=== PATIENT | female | born 1950 | race Caucasian/White ===

== ENCOUNTER → 2020-10-06 12:03 | Outpatient (BNVA) | payer MEDICARE, MEDICAID, SELFPAY | PROVIDERS: PCP Internal Medicine; Visit Provider Nurse Practitioner Gerontology | CPT/HCPCS: Q3014 ==

== ENCOUNTER 2020-10-08 09:42 | Outpatient (REF) | payer MEDICARE, MEDICAID, SELFPAY ==
[2020-10-08 10:58] LABS: Creatinine Urine 115.63 mg/dL; Microalbum/Creatinine Ratio Ur 20.7 ug/mg cr
[2020-10-08 11:02] LABS: Alanine Aminotransferase 8 U/L (0-31); Albumin Level 4.2 g/dL (3.5-5.0); Alkaline Phosphatase 141 U/L (39-117); Anion Gap 13 (12-20); Aspartate Amino Transferase 24 U/L (5-31); Bilirubin Total 0.6 mg/dL (0.0-1.0); Blood Urea Nitrogen 13 mg/dL (9-16); Calcium 9.1 mg/dL (8.4-10.2); Carbon Dioxide 29 mmol/L (22-29); Chloride 100 mmol/L (96-108); Cholesterol 153 mg/dL; Estimated Glomerular Filt Rate 50; Glucose Fasting 296 mg/dL (60-99); HDL Cholesterol 34 mg/dL; LDL Cholesterol Calculated 92 mg/dl; Sodium 138 mmol/L (135-145); Total Protein 7.1 g/dL (6.5-8.0); Triglycerides 135 mg/dL
[2020-10-08 11:10] LABS: Estimated Average Glucose 246 mg/dL; Hemoglobin A1c % 10.2 %
== END 2020-10-08 09:43 | disposition home or self-care (01) ==
LOC: HO.LAB 09:42
PROVIDERS: PCP Internal Medicine; Visit Provider Nurse Practitioner Gerontology
DX: E11.42 Type 2 diabetes mellitus with diabetic polyneuropathy (principal); E78.5 Hyperlipidemia, unspecified
CPT/HCPCS: 36415; 80053; 80061; 82043; 83036

== ENCOUNTER 2020-10-15 09:40 | Outpatient (REF) | payer MEDICARE, MEDICAID, SELFPAY ==
[2020-10-20 18:52] LABS: Alk.Phos Iso. Macrohepatic 0 % (<=0); Alk.Phos Isoenzymes Bone 53 % (28-66); Alk.Phos Isoenzymes Intest 0 % (1-24); Alk.Phos Isoenzymes Liver 47 % (25-69); Alk.Phos Isoenzymes Placental 0 % (<=0); Alk.Phos Isoenzymes Total 123 U/L (37-153)
== END 2020-10-15 09:41 | disposition home or self-care (01) ==
LOC: HO.LAB 09:40
PROVIDERS: PCP Nurse Practitioner Gerontology; Visit Provider Internal Medicine
DX: R74.8 Abnormal levels of other serum enzymes (principal)
CPT/HCPCS: 36415; 84080

== ENCOUNTER 2020-11-08 10:51 | Outpatient (REF) | payer MEDICARE, MEDICAID, SELFPAY ==
--- NOTE | 2020-11-08 11:03 | ECG_ITS ---
Test Reason : Z01.818 Blood Pressure : / mmHG Vent. Rate : 090 BPM Atrial Rate : 090 BPM P-R Int : 168 ms QRS Dur : 070 ms QT Int : 358 ms P-R-T Axes : 053 039 002 degrees QTc Int : 437 ms Normal sinus rhythm Nonspecific T wave abnormality Abnormal ECG When compared with ECG of 03-MAY-2019 15:42, No significant change was found Referred By: Florence Mercedes Electronically Signed By:Troy De La Rosa
[2020-11-08 11:30] LABS: MANUAL DIFF FLAG NO
[2020-11-08 11:37] LABS: Basophils Percent Auto 0.4 % (0-2); Eosinophils Absolute Auto 0.2 X10*3/uL (0.0-0.4); Eosinophils Percent Auto 3.1 % (0-4); Hematocrit 41.7 % (37-47); Hemoglobin 12.9 g/dl (12.0-16.0); Imm Gran Abs Auto 0.01 X10*3/uL (0.00-0.03); Imm Gran Pct Auto 0.1 % (0.0-0.4); Lymphocytes Absolute Auto 2.6 X10*3/uL (1.2-4.9); Mean Corpuscular HGB Conc 30.9 g/dl (31.0-35.0); Mean Corpuscular Hemoglobin 28.3 pg (27.0-33.0); Mean Corpuscular Volume 91.4 fL (80-98); Mean Platelet Volume 9.9 fL (9.4-12.3); Monocytes Absolute Auto 0.6 X10*3/uL (0.1-1.2); Monocytes Percent Auto 7.3 % (2-11); Neutrophils Absolute Auto 4.1 X10*3/uL (2.0-8.3); Neutrophils Percent Auto 54.1 % (45-73); Platelet Count 222 X10*3/uL (160-400); Red Blood Count 4.56 X10*6/uL (4.20-5.50); Red Cell Distribution Width 13.4 % (11.0-16.0); White Blood Count 7.5 X10*3/uL (4.8-10.8)
[2020-11-08 12:11] LABS: Alanine Aminotransferase 10 U/L (0-31); Albumin Level 4.3 g/dL (3.5-5.0); Alkaline Phosphatase 122 U/L (39-117); Anion Gap 14 (12-20); Aspartate Amino Transferase 26 U/L (5-31); Bilirubin Total 0.4 mg/dL (0.0-1.0); Blood Urea Nitrogen 15 mg/dL (9-16); Calcium 9.7 mg/dL (8.4-10.2); Carbon Dioxide 27 mmol/L (22-29); Chloride 105 mmol/L (96-108); Cholesterol 195 mg/dL; Estimated Glomerular Filt Rate 53; Glucose Fasting 140 mg/dL (60-99); HDL Cholesterol 34 mg/dL; LDL Cholesterol Calculated 136 mg/dl; Potassium 4.4 mmol/L (3.3-5.1); Sodium 142 mmol/L (135-145); Total Protein 7.1 g/dL (6.5-8.0); Triglycerides 126 mg/dL
== END 2020-11-08 10:52 | disposition home or self-care (01) ==
LOC: HO.LAB 10:51
PROVIDERS: PCP Internal Medicine; Visit Provider Nurse Practitioner Family
DX: Z01.818 Encounter for other preprocedural examination (principal)
CPT/HCPCS: 36415; 80053; 80061; 85025; 93005

== ENCOUNTER → 2020-12-13 11:23 | Outpatient (BNVA) | payer MEDICARE, MEDICAID, SELFPAY | PROVIDERS: PCP Internal Medicine; Visit Provider Nurse Practitioner Gerontology | DX: E11.42 Type 2 diabetes mellitus with diabetic polyneuropathy (principal); E78.5 Hyperlipidemia, unspecified; I10 Essential (primary) hypertension; Z68.32 Body mass index [BMI] 32.0-32.9, adult; Z79.4 Long term (current) use of insulin; Z71.3 Dietary counseling and surveillance; Z87.891 Personal history of nicotine dependence | CPT/HCPCS: 82947; 99212 ==

== ENCOUNTER 2020-12-22 11:03 | Outpatient (REF) | payer MEDICARE, MEDICAID, SELFPAY ==
--- NOTE | ~2020-12-22 | US_ITS ---
EXAMINATION: US ABDOMEN COMPLETE CLINICAL INFORMATION: Left upper quadrant pain. COMPARISON: Abdominal ultrasound 04/23/2016 TECHNIQUE: Real-time imaging of the abdominal viscera. FINDINGS: PANCREAS: Not well visualized due to bowel gas ABDOMINAL AORTA: The proximal and distal segments are normal in caliber. The midabdominal aorta is not well visualized due to bowel gas INFERIOR VENA CAVA: Visualized portions are normal. LIVER: Liver echotexture is increased. No focal liver lesion is seen. The liver is normal in size and contour. There is mild intrahepatic biliary duct dilatation. GALLBLADDER: The gallbladder is upper normal in size. There is a gallstone in the gallbladder neck.. The gallbladder wall is normal. COMMON BILE DUCT: Upper normal in size measuring 0.79 cm in diameter. RIGHT KIDNEY: Normal. No hydronephrosis. No renal calculi or focal parenchymal lesions. The kidney measures 11.0 cm in maximum dimension. LEFT KIDNEY: Normal. No hydronephrosis. No renal calculi or focal parenchymal lesions. The kidney measures 10.5 cm in maximum dimension. SPLEEN: Normal. The spleen measures 9.2 cm in maximum dimension. FREE FLUID: There is trace ascites. US/US abdomen complete IMPRESSION: Echogenic liver. Mild intrahepatic biliary duct dilatation and upper normal-size common bile duct. Upper normal-size gallbladder with gallstone in the neck. Limited visualization of the pancreas and aorta.
== END 2020-12-22 11:04 | disposition home or self-care (01) ==
LOC: HO.US 11:03
PROVIDERS: Visit Provider Internal Medicine
DX: R10.12 Left upper quadrant pain (principal)
CPT/HCPCS: 76700

== ENCOUNTER 2021-01-22 06:53 | Emergency (ER) | payer MEDICARE, MEDICAID, SELFPAY ==
--- NOTE | ~2021-01-22 | CT_ITS ---
EXAMINATION: CT ABDOMEN AND PELVIS WITHOUT CONTRAST CLINICAL INFORMATION: Left flank pain COMPARISON: Portions of a previous study 07/11/14 TECHNIQUE: Multidetector volumetric imaging was performed from the superior aspect of the liver through the pubic symphysis. Sagittal and coronal reformatted images were obtained on the technologist's workstation. This CT examination was performed using dose optimization techniques as appropriate, variously including the following: *Automated exposure control *Adjustment of mA and/or kV according to patient size (this includes techniques or standardized protocols for targeted exams where dose is matched to indication/reason for exam; i.e. extremities or head) *Use of iterative reconstruction technique DLP: 752 mGy-cm FINDINGS: LUNG BASES: No suspicious abnormality in the visualized lower chest LIVER, GALLBLADDER, AND BILIARY TREE: Fatty change in the liver. No suspicious focal lesion. There is a calcified gallstone near the neck. There is no pericholecystic fluid. The common duct measures close to 1 cm. This is greater than expected but is likely unchanged when compared to 07/11/14. There is no opaque calculus demonstrated in the common duct. PANCREAS: No definite mass. No localized peripancreatic stranding. SPLEEN: Within normal limits ADRENAL GLANDS: Normal KIDNEYS AND URETERS: There is no dilation of the urinary collecting system on either side. There is no opaque urinary calculus. There is no perinephric stranding. BLADDER: No suspicious abnormality GASTROINTESTINAL TRACT: A large amount of fecal residue throughout the colon. No localized colonic wall thickening or localized pericolonic fat stranding. No CT evidence of acute appendicitis. There is no small bowel dilation. There is no suspicious abnormality in the stomach. ABDOMINAL WALL: No significant hernia is appreciated. LYMPH NODES: Normal. VASCULAR: There is no abdominal aortic aneurysm. No evidence of a retroperitoneal hemorrhage. PELVIC VISCERA: Slightly heterogeneous uterus with mild uterine contour abnormalities. The pattern suggests the possibility of fibroids. No significant interval change. OSSEOUS STRUCTURES: No suspicious focal lesion. There are extensive degenerative changes in the spine CT/CT abdomen pelvis wo con IMPRESSION: There is no evidence of urinary tract obstruction or opaque urinary calculus. Large amount of fecal residue throughout the colon. No evidence of bowel obstruction.
[2021-01-22 08:35] VITALS: BP 118/58; PULSE 84; RESP 18; TEMP 36.3; O2SAT 98; BMI 38.2
[2021-01-22 08:49] LABS: Basophils Absolute Auto 0.1 X10*3/uL (0.0-0.2); Basophils Percent Auto 0.7 % (0-2); Eosinophils Absolute Auto 0.1 X10*3/uL (0.0-0.4); Eosinophils Percent Auto 1.4 % (0-4); Hematocrit 42.7 % (37-47); Hemoglobin 13.7 g/dl (12.0-16.0); Imm Gran Abs Auto 0.02 X10*3/uL (0.00-0.03); Imm Gran Pct Auto 0.2 % (0.0-0.4); Lymphocytes Absolute Auto 2.5 X10*3/uL (1.2-4.9); MANUAL DIFF FLAG NO; Mean Corpuscular HGB Conc 32.1 g/dl (31.0-35.0); Mean Corpuscular Hemoglobin 28.9 pg (27.0-33.0); Mean Corpuscular Volume 90.1 fL (80-98); Mean Platelet Volume 9.7 fL (9.4-12.3); Monocytes Absolute Auto 0.4 X10*3/uL (0.1-1.2); Monocytes Percent Auto 4.9 % (2-11); Neutrophils Absolute Auto 5.6 X10*3/uL (2.0-8.3); Neutrophils Percent Auto 63.8 % (45-73); Platelet Count 224 X10*3/uL (160-400); Red Blood Count 4.74 X10*6/uL (4.20-5.50); Red Cell Distribution Width 13.5 % (11.0-16.0); White Blood Count 8.7 X10*3/uL (4.8-10.8)
--- NOTE | 2021-01-22 09:11 | ED.GENADULT ---
HPI - General Adult General Chief complaint: Back Pain/Injury Stated complaint: Flank pain Time Seen by Provider: 01/22/21 09:11 Source: patient Mode of arrival: ambulatory Limitations: no limitations History of Present Illness HPI narrative: 70 y/o female with history of DM2 with polyneuropathy, wheelchair bound, obesity, GERD, insomnia who presents to the ED from home with her son reporting left flank and lower abdominal pain for the last few weeks. It is worse in the mornings and with movement. It starts in her left lower and middle back and radiates anteriorly to her lower abdomen. She denies N/V/D or any urinary symptoms. No fevers but reports chills. She denies any known injury. MD complaint: left flank pain Onset (ago): week(s) Location: back and abdomen Radiation: abdomen Severity: moderate Severity scale (1-10): 5 Quality: aching Pain Consistency: constant Relieving factors: rest Exacerbating factors: movement Associated symptoms: denies other symptoms Treatments prior to arrival: none Related Data Home Medications Medication Instructions Recorded Confirmed alprazolam 0.25 mg tablet 0.25 mg PO BID 09/06/20 12/13/20 blood pressure test kit-large #1 ea 09/06/20 12/13/20 carbidopa 25 mg-levodopa 100 mg 2 tab PO TID 09/06/20 12/13/20 tablet cromolyn 4 % eye drops 1 drp OPHTHALMIC (EYE) QID 09/06/20 12/13/20 cyclobenzaprine 5 mg tablet 5 mg PO BEDTIME PRN 09/06/20 12/13/20 enalapril maleate 2.5 mg tablet 2.5 mg PO DAILY 09/06/20 12/13/20 lactulose 10 gram/15 mL oral 10 g PO DAILY 09/06/20 12/13/20 solution metformin 1,000 mg tablet 1,000 mg PO BID 09/06/20 12/13/20 metoprolol succinate 25 mg 12.5 mg PO BID 09/06/20 12/13/20 tablet,extended release 24 hr mometasone 0.1 % topical cream 1 appl TOPICAL DAILY 09/06/20 12/13/20 ropinirole 0.25 mg tablet 0.75 mg PO TID tab 09/06/20 12/13/20 trazodone 50 mg tablet 50 mg PO DAILY 09/06/20 12/13/20 walker #1 ea 09/06/20 12/13/20 fluocinolone acetonide oil 0.01 % 5 drp OTIC (EARS) BID PRN 10/06/20 12/13/20 ear drops amantadine HCl 100 mg capsule 100 mg PO BID 12/13/20 12/13/20 Previous Rx's Medication Instructions Recorded blood-glucose meter #1 ea 09/06/20 colloidal oatmeal 1 packet TOPICAL DAILY 8 Days #8 ea 09/06/20 clotrimazole-betamethasone 1 1 appl TOPICAL BID 15 Days #45 g 09/28/20 %-0.05 % topical cream hydrocortisone 1 % topical cream 1 appl TOPICAL BID PRN 90 Days 09/28/20 #454 g sertraline 25 mg tablet 25 mg PO DAILY 90 Days #90 tab 09/28/20 blood sugar diagnostic #100 ea 10/11/20 pantoprazole 40 mg tablet,delayed 40 mg PO DAILY #90 tab 11/22/20 release gabapentin 400 mg capsule 400 mg PO TID #270 cap 12/07/20 insulin degludec 200 unit/mL (3 10 unit SUBCUT DAILY #9 ml 12/07/20 mL) subcutaneous pen pen needle, diabetic 32 gauge x #30 ea 12/07/20 lancets 33 gauge #100 ea 12/13/20 rosuvastatin 20 mg tablet 20 mg PO DAILY #30 tab 12/13/20 empagliflozin 10 mg tablet 10 mg PO QAM #30 tab 12/14/20 linagliptin 5 mg tablet 5 mg PO DAILY #30 tab 12/14/20 oxycodone 10 mg tablet 10 mg PO Q8H PRN 30 Days #90 tab 12/27/20 cyclobenzaprine 5 mg PO TID PRN #10 tab 01/22/21 polyethylene glycol 3350 [Miralax] 17 g PO DAILY #119 g 01/22/21 Allergies Allergy/AdvReac Type Severity Reaction Status Date / Time aspirin [Aspirin] Allergy Intermediate NOSE BLEED Verified 12/13/20 11:57 Review of Systems Review of Systems: Constitutional: No Fever, No Chills ENT/Mouth: No sore throat, No Rhinorrhea, No Swallowing Difficulty Cardiovascular: No Chest Pain, No SOB, No Orthopnea, No Edema Respiratory: No Cough, No Sputum, No Wheezing, No dyspnea Gastrointestinal: No Nausea, No Vomiting, No Diarrhea, + abdominal Pain Genitourinary: No Dysuria, No Urinary Frequency, No Hematuria Musculoskeletal: No joint pain, + Myalgias Skin: No Skin Lesions, No rash Neuro: No Weakness, No Numbness, No Dizziness, No Headache Psych: No Anxiety/Panic, No Depression Heme/Lymph: No Bruising, No Lymphadenopathy Endocrine: No Polyuria, No Polydipsia [facility] Past Medical History Medical History Dyslipidemia Essential hypertension GERD (gastroesophageal reflux disease) Insomnia Intertrigo Left upper quadrant abdominal pain Lumbar degenerative disc disease Neuropathy Obesity Parkinsons disease Pre-op examination Rash Restless leg syndrome Type 2 diabetes mellitus with diabetic polyneuropathy Unsteady gait Wheelchair bound Surgical History H/O right breast biopsy History of tubal ligation Hx of colonoscopy Hx of eye surgery Hx of mammogram Family History Family History Father No problems noted. Mother No problems noted. Sister Breast cancer S/P CABG x 1 Brother S/P CABG x 1 Cancer Social History Social History Household Members: Children Advance Directives: No Advance Directives Information Provided: No Physical Exam Vital Signs: Vital Signs: Last Vital Signs Temp 97.4 F 01/22/21 10:00 Pulse 82 01/22/21 10:00 Resp 18 01/22/21 10:00 BP 116/68 01/22/21 10:00 Pulse Ox 98 01/22/21 10:00 Body Mass Index 38.2 Appearance: Alert. Oriented X3. No acute distress. Eyes: Pupils equal, round and reactive to light. ENT: Pharynx normal. Neck: Normal inspection. Neck supple. CVS: Normal heart rate and rhythm. Pulses normal. Respiratory: No respiratory distress. Breath sounds normal. Abdomen: Soft and nontender. +BS x4 Back: left middle and lower back with soft tissue tenderness. Skin: Skin warm and dry. Normal skin color. Normal skin turgor. No rashes. Extremities: No lower extremity edema. Neuro: Oriented X 3. No motor deficit. No sensory deficit. Course Course Course Narrative: 70 y/o female presenting with multiple weeks of left flank and back pain, radiates to her abdomen. Lab workup and urine are unremarkable. Suspect muscular etiology but will get CT scan for further evalution. Reevaluation(s) Reevaluation #1: CT scan showing constipation. Will start bowel regimen as well as low dose muscle relaxer for back pain. She is stable for discharge home with outpatient follow up. Medical Decision Making Lab Data Result diagrams: 01/22/21 08:41 01/22/21 08:41 Labs: Lab Results 01/22/21 01/22/21 01/22/21 Range/Units 08:41 08:41 09:17 WBC 8.7 (4.8-10.8) X10*3/uL RBC 4.74 (4.20-5.50) X10*6/uL Hgb 13.7 (12.0-16.0) g/dl Hct 42.7 (37-47) % MCV 90.1 (80-98) fL MCH 28.9 (27.0-33.0) pg MCHC 32.1 (31.0-35.0) g/dl RDW 13.5 (11.0-16.0) % Plt Count 224 (160-400) X10*3/uL MPV 9.7 (9.4-12.3) fL Immature Gran % (Auto) 0.2 (0.0-0.4) % Neut % (Auto) 63.8 (45-73) % Lymph % (Auto) 29.0 (20-40) % [place] % (Auto) 4.9 (2-11) % Eos % (Auto) 1.4 (0-4) % Baso % (Auto) 0.7 (0-2) % Lymph # (Auto) 2.5 (1.2-4.9) X10*3/uL [place] # (Auto) 0.4 (0.1-1.2) X10*3/uL Eos # (Auto) 0.1 (0.0-0.4) X10*3/uL Baso # (Auto) 0.1 (0.0-0.2) X10*3/uL Abs Immat Gran (auto) 0.02 (0.00-0.03) X10*3/uL Absolute Neuts (auto) 5.6 (2.0-8.3) X10*3/uL Absolute Nucleated RBC 0.000 (0.0-0.012) X10*3/uL Nucleated RBC % (auto) 0.0 (0.0-0.2) /100WBC Sodium 140 (135-145) mmol/L Potassium 4.1 (3.3-5.1) mmol/L Chloride 103 (96-108) mmol/L Carbon Dioxide 29 (22-29) mmol/L Anion Gap 12 (12-20) BUN 11 (9-16) mg/dL Creatinine 1.04 (0.5-1.4) mg/dL Estim Creat Clear Calc 57.7 Estimated GFR 53 POC Glucose (60-115) mg/dL Random Glucose 146 H (60-115) mg/dL Calcium 10.0 (8.4-10.2) mg/dL Urine Color YELLOW Urine Appearance HAZY Urine pH 5.5 (5.0-8.0) Ur Specific [place] 1.015 (1.005-1.025) Urine Protein NEG (NEG-TRACE) MG/DL Urine Glucose (UA) 500 H (NEG) MG/DL Urine Ketones 5 (NEG) MG/DL Urine Blood NEG (NEG) Urine Nitrite NEG (NEG) Ur Leukocyte Esterase NEG (NEG) 01/22/21 Range/Units 10:29 WBC (4.8-10.8) X10*3/uL RBC (4.20-5.50) X10*6/uL Hgb (12.0-16.0) g/dl Hct (37-47) % MCV (80-98) fL MCH (27.0-33.0) pg MCHC (31.0-35.0) g/dl RDW (11.0-16.0) % Plt Count (160-400) X10*3/uL MPV (9.4-12.3) fL Immature Gran % (Auto) (0.0-0.4) % Neut % (Auto) (45-73) % Lymph % (Auto) (20-40) % [place] % (Auto) (2-11) % Eos % (Auto) (0-4) % Baso % (Auto) (0-2) % Lymph # (Auto) (1.2-4.9) X10*3/uL [place] # (Auto) (0.1-1.2) X10*3/uL Eos # (Auto) (0.0-0.4) X10*3/uL Baso # (Auto) (0.0-0.2) X10*3/uL Abs Immat Gran (auto) (0.00-0.03) X10*3/uL Absolute Neuts (auto) (2.0-8.3) X10*3/uL Absolute Nucleated RBC (0.0-0.012) X10*3/uL Nucleated RBC % (auto) (0.0-0.2) /100WBC Sodium (135-145) mmol/L Potassium (3.3-5.1) mmol/L Chloride (96-108) mmol/L Carbon Dioxide (22-29) mmol/L Anion Gap (12-20) BUN (9-16) mg/dL Creatinine (0.5-1.4) mg/dL Estim Creat Clear Calc Estimated GFR POC Glucose 142 H (60-115) mg/dL Random Glucose (60-115) mg/dL Calcium (8.4-10.2) mg/dL Urine Color Urine Appearance Urine pH (5.0-8.0) Ur Specific [place] (1.005-1.025) Urine Protein (NEG-TRACE) MG/DL Urine Glucose (UA) (NEG) MG/DL Urine Ketones (NEG) MG/DL Urine Blood (NEG) Urine Nitrite (NEG) Ur Leukocyte Esterase (NEG) Critical Care Time Critical Care Time Critical Care Time: No Discharge Plan Discharge Clinical Impression: Thoracic back pain Qualifiers: Chronicity: unspecified Back pain laterality: left Qualified Code(s): M54.6 - Pain in thoracic spine Constipation Qualifiers: Constipation type: unspecified constipation type Qualified Code(s): K59.00 - Constipation, unspecified Patient Disposition: Home, Self-Care Instructions: Constipation (ED), Back Pain (ED) Additional Instructions: Your lab workup was unremarkable. Your CT scan showed you are constipated. Increase you water and fiber intake. Take Miralax as prescribed once per day. You can also try over the counter Colace and Senna to help you move your bowels. Your back pain is most likely muscular in nature. Take the prescribed muscle relaxer as needed. Recommend Tylenol and/or Motrin as needed for pain. Follow up with your doctor next week. If you have any worsening symptoms come back to the ER for further evaluation. Wharton an?lisis de laboratorio no tuvo nada especial. [place]arton tomograf?a computarizada mostr? que est? estre?morena. [place]ument[place] tu ingesta de agua y fibra. [place] Miralax seg?n lo prescrito nanci vez al d?a. Tambi?n puede probar Colace y Senna de venta jameson para ayudarlo a evacuar. Es muy probable que wharton dolor de espalda sea de naturaleza muscular. [place] el relajante muscular recetado seg?n sea necesario. Recomiende Tylenol y / o Motrin seg?n sea necesario para el dolor. Caron un seguimiento con wharton m?dico la pr?xima semana. Si tiene alg?n s?ntoma que empeora, regrese a la amaris de emergencias para nanci evaluaci?n adicional. Prescriptions: New cyclobenzaprine 5 mg tablet 5 mg PO TID PRN (Reason: muscle spasm) Qty: 10 RF: 0 polyethylene glycol 3350 [Miralax] 17 gram/dose powder 17 g PO DAILY Qty: 119 RF: 0 No Action (DME) blood-glucose meter [FreeStyle Lite Meter] Kit See Rx Instructions .ROUTE .MEDSUPPLY Qty: 1 RF: 0 sertraline 25 mg tablet 25 mg PO DAILY 90 Days Qty: 90 RF: 1 (DME) FreeStyle Lite Strips Strip See Rx Instructions .ROUTE .MEDSUPPLY Qty: 100 RF: 11 pantoprazole 40 mg tablet,delayed release (DR/EC) 40 mg PO DAILY Qty: 90 RF: 2 gabapentin 400 mg capsule 400 mg PO TID Qty: 270 RF: 3 Tresiba FlexTouch U-200 200 unit/mL (3 mL) insulin pen 10 unit subcut DAILY Qty: 9 RF: 1 (DME) pen needle, diabetic [BD Ultra-Fine Lawanda Pen Needle] 32 gauge x 5/32 needle See Rx Instructions .ROUTE .MEDSUPPLY Qty: 30 RF: 11 oxycodone 10 mg tablet 10 mg PO Q8H PRN (Reason: pain) 30 Days Qty: 90 RF: 0 (DME) blood pressure test kit-large Kit See Rx Instructions .ROUTE .MEDSUPPLY Qty: 1 RF: 0 (DME) walker Misc See Rx Instructions .ROUTE .MEDSUPPLY Qty: 1 RF: 0 mometasone 0.1 % cream 1 appl topical DAILY RF: 0 lactulose 10 gram/15 mL solution 10 g PO DAILY RF: 0 alprazolam [Xanax] 0.25 mg tablet 0.25 mg PO BID RF: 0 Aveeno Soothing Bath Packet 1 packet topical DAILY 8 Days Qty: 8 RF: 0 ropinirole 0.25 mg tablet 0.75 mg PO TID RF: 0 cyclobenzaprine 5 mg tablet 5 mg PO BEDTIME PRNRF: 0 metformin 1,000 mg tablet 1,000 mg PO BID RF: 0 metoprolol succinate 25 mg tablet extended release 24 hr 12.5 mg PO BID RF: 0 cromolyn 4 % drops 1 drp ophthalmic (eye) QID RF: 0 enalapril maleate 2.5 mg tablet 2.5 mg PO DAILY RF: 0 carbidopa-levodopa [Sinemet] 25-100 mg tablet 2 tab PO TID RF: 0 trazodone 50 mg tablet 50 mg PO DAILY RF: 0 fluocinolone acetonide oil [DermOtic Oil] 0.01 % drops 5 drp otic (ears) BID PRNRF: 0 hydrocortisone [Anti-Itch (HC)] 1 % cream 1 appl topical BID PRN (Reason: skin irritation Face) 90 Days Qty: 454 RF: 1 clotrimazole-betamethasone 1-0.05 % cream 1 appl topical BID 15 Days Qty: 45 RF: 0 amantadine HCl 100 mg capsule 100 mg PO BID RF: 0 rosuvastatin 20 mg tablet 20 mg PO DAILY Qty: 30 RF: 3 (DME) lancets [TRUEplus Lancets] 33 gauge misc See Rx Instructions .ROUTE .MEDSUPPLY Qty: 100 RF: 11 Tradjenta 5 mg tablet 5 mg PO DAILY Qty: 30 RF: 3 Jardiance 10 mg tablet 10 mg PO QAM Qty: 30 RF: 3 Interventions: ED Discharge Assessment Last Done: 01/22/21 12:28 Discharge Date/Time: 01/22/21 13:10
[2021-01-22 09:24] LABS: Appearance Urine HAZY; Color Urine YELLOW; Glucose Urine UA 500 MG/DL (NEG); Leukocyte Esterase Urine NEG (NEG); Nitrite Urine NEG (NEG); PH 5.5 (5.0-8.0); Specific Gravity - Urine 1.015 (1.005-1.025); Urine Blood NEG (NEG); Urine Ketones 5 MG/DL (NEG); Urine Protein NEG (NEG-TRACE)
[2021-01-22 09:26] LABS: Anion Gap 12 (12-20); Blood Urea Nitrogen 11 mg/dL (9-16); Carbon Dioxide 29 mmol/L (22-29); Chloride 103 mmol/L (96-108); Creatinine Clr Calc Pharmacy 57.7; Estimated Glomerular Filt Rate 53; Glucose Random 146 mg/dL (60-115); Potassium 4.1 mmol/L (3.3-5.1); Sodium 140 mmol/L (135-145)
[2021-01-22 10:00] VITALS: BP 116/68; PULSE 82; RESP 18; TEMP 36.3; O2SAT 98
[2021-01-22] MEDS: Ketorolac Tromethamine 30 MG/ML VIAL IM (10:03)
--- NOTE | 2021-01-22 10:29 | PC.NURSE ---
CT RESULT PENDING PROVIDER AWARE PT TAKES INSULIN, POC 142 GIVEN SNACK, PLAN FOR DC PT CAN RESUME INSULIN AT HOME
[2021-01-22 10:33] LABS: Glucose, Whole Blood 142 mg/dL (60-115)
== END 2021-01-22 13:10 | disposition home or self-care (01) ==
PROVIDERS: Emergency Provider Emergency Medicine Emergency Medical Services; PCP Internal Medicine
DX: M54.6 Pain in thoracic spine (principal); K59.00 Constipation, unspecified; E11.42 Type 2 diabetes mellitus with diabetic polyneuropathy; I10 Essential (primary) hypertension; G20 Parkinson's disease; Z79.4 Long term (current) use of insulin; Z79.899 Other long term (current) drug therapy; Z99.3 Dependence on wheelchair
CPT/HCPCS: 36415; 74176; 80048; 81003; 82947; 85025; 96372; 99284; J1885

== ENCOUNTER → 2021-03-15 12:11 | Outpatient (BNVA) | payer MEDICARE, MEDICAID, SELFPAY | PROVIDERS: PCP Internal Medicine; Visit Provider Nurse Practitioner Gerontology | DX: E11.42 Type 2 diabetes mellitus with diabetic polyneuropathy (principal); I10 Essential (primary) hypertension; E78.5 Hyperlipidemia, unspecified | CPT/HCPCS: 82947; 99212 ==

== ENCOUNTER 2021-05-24 12:46 | Outpatient (REF) | payer MEDICARE, MEDICAID, SELFPAY ==
--- NOTE | ~2021-05-24 | MM_ITS ---
EXAMINATION: BONE DENSITOMETRY CLINICAL INDICATION: Asymptomatic menopausal state. COMPARISON: This is the patient's baseline examination. TECHNIQUE: Using a Digital Lumens DXA System (software version: 13.1) manufactured by [employer], dual-energy x-ray absorptiometry was performed of the lumbar spine and left hip. The images are of good technical quality. Summary results are attached. FINDINGS: AP SPINE L1-L2 (excluding L3 and L4): The data of L1-L4 has been changed to exclude the L3 and L4 vertebral bodies, because degenerative sclerosis at these levels may cause overestimation of lumbar spine density. BMD 1.452 g/cm2, Z-score 3.5, T-score 2.4, normal. LEFT FEMUR, NECK: BMD 0.953 g/cm2, Z-score 0.7, T-score -0.6, normal. LEFT FEMUR, TOTAL: BMD 1.050 g/cm2, Z-score 1.4, T-score 0.3, normal. IDENTIFIED RISK FACTORS: Rheumatoid arthritis. Early menopause, secondary osteoporosis, hysterectomy. HISTORY OF FRACTURE: None listed. MEDICATIONS: None listed. MM/XR DEXA axial skeleton IMPRESSION: 1. DIAGNOSIS: Normal bone density based on the lowest T-score value of -0.6 in the femoral neck applying World Health Organization criteria. 2. 10-YEAR FRACTURE RISK PREDICTION, FRAX: Major osteoporotic fracture (clinical spine, forearm, hip or shoulder) 5.5%. Hip fracture 0.4%. 3. Treatment Recommendations: NOF guidelines recommend consideration for treatment in postmenopausal women and men age 50 and older presenting with the following: -A hip or vertebral (clinical or morphometric) fracture. -T-score less than or equal to -2.5 at the femoral neck or spine after appropriate evaluation to exclude secondary causes. -Low bone mass at the hip or spine and a 10-year fracture probability by FRAX of greater than or equal to 3% for hip fracture or greater than or equal to 20% for major osteoporotic fracture based on the [place] adapted WHO algorithm. 4. Other Recommendations: All treatment decisions require clinical judgment and consideration of individual patient factors, including patient preferences, comorbidities, previous drug use, risk factors not captured in the FRAX model (e.g. frailty, falls, vitamin D deficiency, increased bone turnover, interval significant decline in bone density) and possible under or overestimation of fracture risk by FRAX. FUTURE SCAN RECOMMENDATION: People with diagnosed cases of osteoporosis or at high risk for fracture should have regular bone mineral density tests. For patients eligible for Medicare, routine testing is allowed once every 2 years. The testing frequency can be increased to one year for patients who have rapidly progressing disease, those who are receiving or discontinuing medical therapy to restore bone mass, or have additional risk factors.
--- NOTE | ~2021-05-24 | MM_ITS ---
EXAMINATION: MM SCREENING DIGITAL BREAST TOMOSYNTHESIS, BILATERAL CLINICAL INFORMATION: Screening. Asymptomatic. The lifetime risk of breast cancer based on the Tyrer-Cuzick Model is 3%. COMPARISON: Mammography: 12/18/2016 08/16/2015 TECHNIQUE: Digital breast tomosynthesis is performed in both the craniocaudal and mediolateral oblique views along with computer-aided detection (CAD). Synthesized 2D images are generated from the tomosynthesis. Additional left CC and right MLO views are provided. FINDINGS: There are scattered areas of fibroglandular density (ACR BI-RADS breast composition Category b). There are no significant masses, abnormal calcifications, or other abnormalities. There is biopsy clip marker mid upper outer right breast. Parenchymal pattern is similar to prior studies. MM/MM tomosynthesis screening BI IMPRESSION: No mammographic evidence of malignancy. ASSESSMENT: BI-RADS 1: Negative RECOMMENDATION: Routine annual mammography screening. This patient's information was entered into a reminder system with a target due date for their next mammogram.
== END 2021-05-24 12:47 | disposition home or self-care (01) ==
LOC: HO.MAMMO 12:46
PROVIDERS: PCP Internal Medicine; Visit Provider Nurse Practitioner Family
DX: Z12.31 Encounter for screening mammogram for malignant neoplasm of breast (principal); Z13.820 Encounter for screening for osteoporosis; M06.9 Rheumatoid arthritis, unspecified; Z78.0 Asymptomatic menopausal state
CPT/HCPCS: 77063; 77067; 77080

== ENCOUNTER → 2021-11-09 13:25 | Outpatient (BNVA) | payer MEDICARE, MEDICAID, SELFPAY | PROVIDERS: PCP Internal Medicine; Visit Provider Nurse Practitioner Gerontology | DX: E11.42 Type 2 diabetes mellitus with diabetic polyneuropathy (principal); I10 Essential (primary) hypertension; E78.5 Hyperlipidemia, unspecified | CPT/HCPCS: 82947; 83036; 99212 ==

== ENCOUNTER 2021-11-11 08:58 | Outpatient (REF) | payer MEDICARE, MEDICAID, SELFPAY ==
[2021-11-11 10:29] LABS: Alanine Aminotransferase 17 U/L (0-31); Albumin Level 4.4 g/dL (3.5-5.0); Alkaline Phosphatase 102 U/L (39-117); Anion Gap 12 (12-20); Aspartate Amino Transferase 19 U/L (5-31); Bilirubin Total 0.4 mg/dL (0.0-1.0); Blood Urea Nitrogen 14 mg/dL (9-16); Calcium 10.3 mg/dL (8.4-10.2); Carbon Dioxide 31 mmol/L (22-29); Chloride 105 mmol/L (96-108); Cholesterol 146 mg/dL; Estimated Glomerular Filt Rate 47; Glucose Fasting 118 mg/dL (60-99); HDL Cholesterol 38 mg/dL; LDL Cholesterol Calculated 86 mg/dl; Potassium 4.2 mmol/L (3.3-5.1); Sodium 144 mmol/L (135-145); Total Protein 7.7 g/dL (6.5-8.0); Triglycerides 114 mg/dL
[2021-11-11 11:51] LABS: Creatinine Urine 92.41 mg/dL
[2021-11-12 06:37] LABS: LDL Cholesterol Direct 82 mg/dL (<100)
[2021-11-15 13:27] LABS: Vitamin D 25-OH, D2 <4 ng/mL; Vitamin D 25-OH, D3 15 ng/mL; Vitamin D 25-OH, Total 15 ng/mL (30-100)
== END 2021-11-11 08:59 | disposition home or self-care (01) ==
LOC: HO.LAB 08:58
PROVIDERS: PCP Internal Medicine; Visit Provider Nurse Practitioner Gerontology
DX: E11.42 Type 2 diabetes mellitus with diabetic polyneuropathy (principal); E55.9 Vitamin D deficiency, unspecified
CPT/HCPCS: 36415; 80053; 80061; 82043; 82306; 83721

== ENCOUNTER → 2022-01-29 13:04 | Outpatient (BNVA) | payer MEDICARE, MEDICAID, SELFPAY | PROVIDERS: PCP Internal Medicine; Visit Provider Nurse Practitioner Gerontology | DX: E11.42 Type 2 diabetes mellitus with diabetic polyneuropathy (principal); I10 Essential (primary) hypertension; E78.5 Hyperlipidemia, unspecified; E55.9 Vitamin D deficiency, unspecified; Z79.84 Long term (current) use of oral hypoglycemic drugs; Z79.899 Other long term (current) drug therapy | CPT/HCPCS: 82947; 83036; 99212 ==

== ENCOUNTER 2022-06-27 12:46 | Outpatient (REF) | payer MEDICARE, MEDICAID, SELFPAY ==
--- NOTE | ~2022-06-27 | MM_ITS ---
EXAMINATION: MM SCREENING DIGITAL BREAST TOMOSYNTHESIS, BILATERAL CLINICAL INFORMATION: Screening. Asymptomatic. The lifetime risk of breast cancer based on the Tyrer-Cuzick Model is 6%. COMPARISON: Mammography: 05/24/2021, 12/18/2016, 08/16/2015 TECHNIQUE: Digital breast tomosynthesis is performed in both the craniocaudal and mediolateral oblique views along with computer-aided detection (CAD). Synthesized 2D images are generated from the tomosynthesis. Additional left cleavage view is provided. Technically challenging exam, tailored to patient capabilities. FINDINGS: There are scattered areas of fibroglandular density (ACR BI-RADS breast composition Category b). Breast tissue composition borders on predominantly fatty. Background stromal and fibroglandular densities are stable. There is no interval mass or architectural abnormality or developing density. There are scattered benign round and rim calcifications. There is a biopsy clip marker again noted posterior upper outer right breast. MM/MM tomosynthesis screening BI IMPRESSION: No significant changes from prior exams. ASSESSMENT: BI-RADS 2: Benign RECOMMENDATION: Routine annual mammography screening. This patient's information was entered into a reminder system with a target due date for their next mammogram.
== END 2022-06-27 12:47 | disposition home or self-care (01) ==
LOC: HO.MAMMO 12:46
PROVIDERS: PCP Internal Medicine; Visit Provider Nurse Practitioner Family
DX: Z12.31 Encounter for screening mammogram for malignant neoplasm of breast (principal)
CPT/HCPCS: 77063; 77067

== ENCOUNTER 2022-07-26 10:18 | Outpatient (REF) | payer MEDICARE, MEDICAID, SELFPAY | END 2022-07-26 10:19 | disposition home or self-care (01) | LOC: HO.HOSX 10:18 | PROVIDERS: Visit Provider Physician Assistant | DX: Z13.89 Encounter for screening for other disorder (principal) ==

== ENCOUNTER 2022-07-28 08:58 | Outpatient (REF) | payer MEDICARE, MEDICAID, SELFPAY ==
--- NOTE | ~2022-07-28 | XR_ITS ---
EXAMINATION: XR SHOULDER, RIGHT CLINICAL INFORMATION: Pain COMPARISON: None TECHNIQUE: Three views of the right shoulder. FINDINGS: No fracture or dislocation. The glenohumeral joint is well aligned. Narrowing of the joint space with osteophyte formation. Mild hypertrophic degenerative change of the acromioclavicular joint with subacromial spurring noted. The visualized lung is clear. The visualized ribs are intact. XR/XR shoulder RT min 2V IMPRESSION: Mild to moderate degenerative changes of the right shoulder.
[2022-07-28 10:18] LABS: Alanine Aminotransferase < 6 U/L (0-31); Albumin Level 4.3 g/dL (3.5-5.0); Alkaline Phosphatase 112 U/L (39-117); Anion Gap 14 (12-20); Aspartate Amino Transferase 16 U/L (5-31); Bilirubin Total 0.5 mg/dL (0.0-1.0); Blood Urea Nitrogen 12 mg/dL (9-16); Calcium 10.4 mg/dL (8.4-10.2); Carbon Dioxide 27 mmol/L (22-29); Chloride 104 mmol/L (96-108); Cholesterol 134 mg/dL; Estimated Glomerular Filt Rate 44; Glucose Fasting 151 mg/dL (60-99); HDL Cholesterol 39 mg/dL; LDL Cholesterol Calculated 77 mg/dl; Potassium 4.7 mmol/L (3.3-5.1); Sodium 140 mmol/L (135-145); Total Protein 7.3 g/dL (6.5-8.0); Triglycerides 94 mg/dL
[2022-07-28 11:29] LABS: Microalbum/Creatinine Ratio Ur 8.3 ug/mg cr
== END 2022-07-28 08:59 | disposition home or self-care (01) ==
LOC: HO.LAB 08:58
PROVIDERS: PCP Internal Medicine; Referring Provider Physician Assistant; Visit Provider Internal Medicine
DX: E78.5 Hyperlipidemia, unspecified (principal); E55.9 Vitamin D deficiency, unspecified; E11.42 Type 2 diabetes mellitus with diabetic polyneuropathy; M25.511 Pain in right shoulder
CPT/HCPCS: 36415; 73030; 80053; 80061; 82043; 82306

== ENCOUNTER 2023-03-23 08:17 | Outpatient (REF) | payer MEDICARE, MEDICAID, SELFPAY ==
[2023-03-23 09:28] LABS: Alanine Aminotransferase 8 U/L (0-31); Albumin Level 4.5 g/dL (3.5-5.0); Alkaline Phosphatase 115 U/L (39-117); Anion Gap 14 (12-20); Aspartate Amino Transferase 22 U/L (5-31); Bilirubin Total 0.6 mg/dL (0.0-1.0); Blood Urea Nitrogen 14 mg/dL (9-16); Calcium 10.6 mg/dL (8.4-10.2); Carbon Dioxide 24 mmol/L (22-29); Chloride 107 mmol/L (96-108); Cholesterol 225 mg/dL; Estimated Glomerular Filt Rate 45; Glucose Fasting 140 mg/dL (60-99); HDL Cholesterol 37 mg/dL; LDL Cholesterol Calculated 168 mg/dl; Potassium 3.6 mmol/L (3.3-5.1); Sodium 141 mmol/L (135-145); Total Protein 7.9 g/dL (6.5-8.0); Triglycerides 103 mg/dL
[2023-03-23 09:38] LABS: Vitamin D 25-OH Total 56.7 ng/mL (>30)
[2023-03-23 10:03] LABS: Creatinine Urine 102.83 mg/dL; Microalbum/Creatinine Ratio Ur 5.8 ug/mg cr
== END 2023-03-23 08:18 | disposition home or self-care (01) ==
LOC: HO.LAB 08:17
PROVIDERS: PCP Internal Medicine; Visit Provider Internal Medicine
DX: E11.9 Type 2 diabetes mellitus without complications (principal); E55.9 Vitamin D deficiency, unspecified; E78.5 Hyperlipidemia, unspecified
CPT/HCPCS: 36415; 80053; 80061; 82043; 82306

== ENCOUNTER 2023-04-02 14:03 | Outpatient (AMB) | payer MEDICARE, MEDICAID, SELFPAY ==
--- NOTE | 2023-04-02 14:04 | A.OFFPC_ITS ---
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 Accompanied by: Niece Allergies aspirin [Aspirin] Allergy (Intermediate, Verified 04/02/23 14:17) NOSE BLEED Medication List - Last Reconciled 04/02/23 by Amanda Rodriguez MD [adult diapers pull-ups As directed] amantadine HCl 100 mg PO BID 90 days blood pressure test kit-large As directed blood sugar diagnostic (FreeStyle Lite Strips) USE DIRECTED ONCE A DAY blood-glucose meter (FreeStyle Lite Meter kit) As directed once a day carbidopa-levodopa 25-100 mg (Sinemet) 2 tabs PO TID cholecalciferol (vitamin D3) 50 mcg PO DAILY 90 days cromolyn 4% 1 drp ophthalmic (eye) QID 7 days empagliflozin (Jardiance) 10 mg PO QAM gabapentin 400 mg PO TID 30 days lancets (TRUEplus Lancets) Three times a day linagliptin (Tradjenta) 5 mg PO DAILY metformin 500 mg PO BID 90 days metoprolol succinate ER 12.5 mg (1/2 x 25 mg) PO BID 90 days oxycodone 10 mg PO Q8H PRN 30 days pantoprazole 40 mg PO DAILY 90 days pen needle, diabetic (BD Ultra-Fine Lawanda Pen Needle) As directed once daily ropinirole 0.75 mg PO TID rosuvastatin 20 mg PO DAILY sertraline 25 mg PO DAILY 90 days trazodone 50 mg PO DAILY triamcinolone acetonide 0.1% 1 appl topical BID 30 days underpads (Certainty Underpads) As directed walker As directed [wipes As directed] Tobacco use date assessed: 11/28/22 Fall risk assessment: No Falls in past year Last assessed Fall Risk: 04/02/23 Dental Screening Dental Screen Date: 04/02/23 Did you have a dental visit in the last 12 months?: No Did you have a dental problem in the last 6 months where you did not have access to dental care?: No Was dental information given to patient?: Patient declined HPI HPI Comments History of Present Illness Details This is a 73-year-old female with diabetes mellitus type 2, hyperlipidemia, mild recurrent major depression and Parkinson's disease that comes accompanied by niece for follow-up on her conditions. A1c close to goal but still not on goal and I will increase Jardiance. She admits not been compliant to diet. LDL not on goal and I will increase rosuvastatin from 20 mg to 40 mg. Depression stable. Parkinson's has not significantly changed and is follow by Neurology. Diabetic eye exam is coming soon. Already went to podiatry. Has abnormal gait and this is why she use a wheelchair for office visit appointment. No chest pain or shortness of breath. [facility] Medical History (Updated 04/02/23 @ 14:36 by Amanda Rodriguez MD) Dyslipidemia Essential hypertension Fecal incontinence GERD (gastroesophageal reflux disease) Insomnia Intertrigo Left upper quadrant abdominal pain Lumbar degenerative disc disease Mild recurrent major depression Neuropathy Obesity Parkinsons disease Post-menopausal Pre-op examination Rash Restless leg syndrome Screening for breast cancer Type 2 diabetes mellitus with diabetic polyneuropathy Unsteady gait Urge urinary incontinence Wheelchair bound Surgical History H/O right breast biopsy History of tubal ligation Hx of colonoscopy Hx of eye surgery Hx of mammogram Family History Father No problems noted. Mother No problems noted. Sister Breast cancer S/P CABG x 1 Brother S/P CABG x 1 Cancer Social History Household Members: Children Housing: Apartment Alcohol intake: former Patient Tobacco Use Status: Former Tobacco user Tobacco use type: Cigarette e-Cigarette/Vaping Use: Never Used Second Hand Smoke Exposure: No service: No Current occupational status: disabled Cognitive needs: Yes Hearing needs: No Vision needs: No Questionnaire Thrive Questionnaire Date Thrive assessed: 11/28/22 TODD-7 AMB Questionnaire TODD-7 Date TODD - 7 assessed: 11/28/22 Source: Developed by Drs. Elliot Castanon, Lizz De Leon, Aldo Gonzalez and colleagues, with an educational adarsh from [employer]. Review of Systems Const All systems reviewed & are unremarkable except as noted in HPI and below Eyes Reports no additional complaints, Denies change in vision and Denies other visual disturbances Card Denies chest pain at rest, Denies chest pain with activity, Denies edema, Denies irregular heart rhythm, Denies claudication, Denies dyspnea, Denies dyspnea on exertion, Denies orthopnea, Denies paroxysmal nocturnal dyspnea and Denies slow heart rate Resp Denies cough, Denies dyspnea and Denies dyspnea on exertion GI Denies abdominal pain, Denies change in bowel habits, Denies excessive flatus, Denies nausea and Denies vomiting Denies urinary incontinence, Denies urinary hesitancy and Denies urinary urgency Musc Denies abnormal gait, Denies atrophy, Denies deformity and Denies limited range of motion Skin/Breast Denies bleeding lesions, Denies changing lesions and Denies rash Neuro Denies abnormal gait and Denies lack of coordination Physical exam (Primary Care) Vital Signs: Last Vital Signs BP 112/76 04/02/23 14:05 BMI result Body Mass Index 31.1 Tobacco/Smoking Status: Tobacco use Status Tobacco use date assessed 11/28/22 04/02/23 14:08 Patient Tobacco Use Status Former Tobacco user 04/02/23 14:08 Tobacco use type Cigarette 04/02/23 14:08 e-Cigarette/Vaping Use Never Used 04/02/23 14:08 Thrive Assessment: Date of Thrive Assessment Date Thrive assessed 11/28/22 04/02/23 14:08 Const Orientation/consciousness: oriented to person Limitations: wheelchair Eyes General: appearance normal, both eyes and all related structures Eyelids: Yes eyelids normal Conjunctivae: conjunctivae normal Neck Neck: Yes normal visual inspection and Yes supple Resp Effort & Inspection: normal respiratory effort Auscultation: clear to auscultation bilaterally Cardio Jugular venous distension: no JVD Rate: regular rate Rhythm: regular rhythm Heart sounds: S1 normal heart sound present and S2 normal heart sound present Neuro General: oriented to person Motor exam (neuro): Tremors during motor activity present Extrem General: Yes full ROM Results AMB Hemoglobin A1c AMB Hemoglobin A1c 7.1 % Last Edit by VERA Vann on 04/02/23 14:2 1 Assessment and Plan Assessment & Plan (1) Diabetes mellitus: Code(s): E11.9 - Type 2 diabetes mellitus without complications Plan: Continue metformin and Tradjenta. Increase Jardiance from 10 mg to 25 mg. A1c goal is equal or less than 7%. Be more compliant with diet. (2) Mild recurrent major depression: Code(s): F33.0 - Major depressive disorder, recurrent, mild Plan: Continue sertraline. (3) Parkinsons disease: Code(s): G20 - Parkinson's disease Plan: Continue carbidopa-level though Pap. Follow-up with Neurology. Continue amantadine. (4) Hyperlipidemia LDL goal <70: Code(s): E78.5 - Hyperlipidemia, unspecified Plan: Increase rosuvastatin from 20 mg to 40 mg. LDL goal is less than 70. Orders: Orders XR DEXA axial skeleton 2 Months N95.9 - Unspecified menopausal and perimenopausal disorder AMB Hemoglobin A1c Today E11.9 - Type 2 diabetes mellitus without complications Medications: New empagliflozin (Jardiance) 25 mg PO DAILY 90 days 90 tabs 1RF rosuvastatin 40 mg PO DAILY 90 days 90 tabs 1RF Refilled oxycodone 10 mg PO Q8H 30 days PRN 90 tabs 0RF pain gabapentin 400 mg PO TID 30 days 90 caps 1RF Discontinued empagliflozin (Jardiance) Discontinued Reason: Patient Completed Course 10 mg PO QAM 30 tabs 6RF E11.42 - Type 2 diabetes mellitus with diabetic polyneuropathy rosuvastatin Discontinued Reason: Patient Completed Course 20 mg PO DAILY 90 tabs 0RF Coding Level of Care Code Est Pt Level 4 (38766) Diagnoses Diabetes mellitus E11.9 Mild recurrent major depression F33.0 Parkinsons disease G20 Hyperlipidemia LDL goal <70 E78.5 Time Spent (min) 24
[2023-04-02 14:05] VITALS: BP 112/76; BMI 31.1
== END 2023-04-02 14:31 | disposition home or self-care (01) ==
PROVIDERS: Visit Provider Internal Medicine
DX: E11.9 Type 2 diabetes mellitus without complications (principal); F33.0 Major depressive disorder, recurrent, mild; G20 Parkinson's disease; E78.5 Hyperlipidemia, unspecified
CPT/HCPCS: 83036; 99214

== ENCOUNTER 2023-08-13 10:50 | Outpatient (AMB) | payer MEDICARE, MEDICAID, SELFPAY ==
[2023-08-13 10:56] VITALS: BP 132/80; PULSE 81; O2SAT 99; BMI 29.0
--- NOTE | 2023-08-13 10:56 | MHC.PC.OV ---
Vital Signs 08/13/23 10:56 Height 5 ft 6 in Weight 179 lb 14.355 oz BMI 29.0 BP 132/80 Blood Pressure Location Lt brachial Position Sitting Pulse 81 Pulse Source Pulse Oximeter Pulse Oximetry (%) 99 Oxygen Delivery Method Room Air Intake Visit Reasons: Annual exam Automation Technologist Required: No Accompanied by: Self / Same As Patient Allergies aspirin [Aspirin] Allergy (Intermediate, Verified 08/13/23 11:14) NOSE BLEED Medication List - Last Reconciled 08/13/23 by Amanda Rodriguez MD [adult diapers pull-ups As directed] amantadine HCl 100 mg PO BID 90 days blood pressure test kit-large As directed blood sugar diagnostic (FreeStyle Lite Strips) USE DIRECTED ONCE A DAY blood-glucose meter (FreeStyle Lite Meter kit) As directed once a day carbidopa-levodopa 25-100 mg (Sinemet) 2 tabs PO TID cholecalciferol (vitamin D3) 50 mcg PO DAILY 90 days cromolyn 4% 1 drp ophthalmic (eye) QID 7 days empagliflozin (Jardiance) 25 mg PO DAILY 90 days gabapentin 400 mg PO TID 30 days lancets (TRUEplus Lancets) Three times a day linagliptin (Tradjenta) 5 mg PO DAILY metformin 500 mg PO BID 90 days metoprolol succinate ER 12.5 mg (1/2 x 25 mg) PO BID 90 days oxycodone 10 mg PO Q8H PRN 30 days pantoprazole 40 mg PO DAILY 90 days pen needle, diabetic (BD Ultra-Fine Lawanda Pen Needle) As directed once daily ropinirole 0.75 mg PO TID rosuvastatin 40 mg PO DAILY 90 days sertraline 25 mg PO DAILY 90 days trazodone 50 mg PO DAILY triamcinolone acetonide 0.1% 1 appl topical BID 30 days underpads (Certainty Underpads) As directed walker As directed [wipes As directed] Tobacco use date assessed: 08/13/23 Fall risk assessment: No Falls in past year Last assessed Fall Risk: 08/13/23 Dental Screening Dental Screen Date: 08/13/23 Did you have a dental visit in the last 12 months?: No Did you have a dental problem in the last 6 months where you did not have access to dental care?: No Was dental information given to patient?: Patient has dentist HPI HPI Comments History of Present Illness Details This is a 73-year-old female with diabetes mellitus type 2 and Parkinson's disease accompanied by daughter in-law for her physical exam. A1c close to goal and she admits not been compliant with diet. Diabetic eye exam was over a year ago when she will call to schedule an appointment. Last mammogram was June 2022 and I order a mammogram to be done. Last colonoscopy was 2019 showing tubular adenoma and was referred to Gastroenterology. In a wheelchair due to gait instability. 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 No chest pain or shortness of breath. Wants a 2nd opinion for Neurology. Parkinson's disease has not significantly changed. [facility] Medical History (Updated 08/13/23 @ 11:59 by Amanda Rodriguez MD) Urge urinary incontinence Fecal incontinence Mild recurrent major depression Post-menopausal Screening for breast cancer Left upper quadrant abdominal pain Pre-op examination Restless leg syndrome Wheelchair bound Obesity Insomnia GERD (gastroesophageal reflux disease) Intertrigo Neuropathy Parkinsons disease Dyslipidemia Essential hypertension Unsteady gait Type 2 diabetes mellitus with diabetic polyneuropathy Rash Lumbar degenerative disc disease Surgical History Hx of mammogram Hx of colonoscopy Hx of eye surgery H/O right breast biopsy History of tubal ligation Family History Father No problems noted. Mother No problems noted. Sister Breast cancer S/P CABG x 1 Brother S/P CABG x 1 Cancer Social History Household Members: Children Housing: Apartment Alcohol intake: former Patient Tobacco Use Status: Former Tobacco user Tobacco use type: Cigarette e-Cigarette/Vaping Use: Never Used Second Hand Smoke Exposure: No service: No Current occupational status: disabled Cognitive needs: Yes Hearing needs: No Vision needs: No Questionnaire PHQ-9 Over the last 2 weeks, how often have you been bothered by any of the following problems? 1. Little interest or pleasure in doing things: several days 2. Feeling down, depressed, or hopeless: several days 3. Trouble falling or staying asleep, or sleeping too much: several days 4. Feeling tired or having little energy: not at all 5. Poor appetite or overeating: not at all 6. Feeling bad about yourself - or that you are a failure or have let yourself or your family down: not at all 7. Trouble concentrating on things, such as reading the newspaper or watching television: not at all 8. Moving or speaking so slowly that other people could have noticed. Or the opposite - being so fidgety or restless that you have been moving around a lot more than usual: not at all 9. Thoughts that you would be better off or of hurting yourself in some way: not at all Total score: 3 Depression Screening Interpretation: Negative Depression Screening Done: Yes 93314 - PHQ-9 Billing: Yes Source: Developed by Drs. Elliot Castanon, Lizz De Leon, Aldo Gonzalez and colleagues, with an educational adarsh from [employer]. Thrive Questionnaire Date Thrive assessed: 08/13/23 I am a: Patient What is your living situation today?: I have a steady place to live Within the past 12 months, did the food you bought not last and you didn't have the money to get more?: Never true Within the past 12 months, did you worry whether your food would run out before you got money to buy more?: Never true Do you have trouble paying for medicines?: No Do you have trouble getting transportation to medical appointments?: No Do you have trouble paying your heating and electricity bill?: No Do you have trouble taking care of your child, family member or friend?: No Do you have trouble with day-to-day activities such as bathing, preparing meals, shopping, managing finances, etc.?: No Are you currently unemployed and looking for a job?: No Are you interested in more education?: No Please select the resources that you would like help with: None Currently or been in a relationship where the following occur: no concerns reported AUDIT C Alcohol Use Questionnaire (AUDIT-C) 1. How often do you have a drink containing alcohol?: Never Total Score: 0 Score Reviewed/Action Taken: No TODD-7 AMB Questionnaire TODD-7 Date TODD - 7 assessed: 08/13/23 Feeling nervous, anxious, or on edge: 1 = Several days Not being able to stop or control worryin = Not at all Worrying too much about different things: 0 = Not at all Trouble relaxin = Not at all Being so restless that it is hard to sit still: 0 = Not at all Becoming easily annoyed or irritable: 0 = Not at all Feeling afraid as if something awful might happen: 0 = Not at all Total TODD-7 score (0-4 normal; 5-9 mild; 10-14 moderate; 15-21 severe): 1 Source: Developed by Drs. Elliot Castanon, Lizz De Leon, Aldo Gonzalez and colleagues, with an educational adarsh from [employer]. TODD-7 Assessment Billing TODD-7 Assessment Tool: TODD-7 Assessment 22561 Review of Systems Const All systems reviewed & are unremarkable except as noted in HPI and below Eyes Reports no additional complaints, Denies change in vision and Denies other visual disturbances Card Denies chest pain at rest, Denies chest pain with activity, Denies edema, Denies irregular heart rhythm, Denies claudication, Denies dyspnea, Denies dyspnea on exertion, Denies orthopnea, Denies paroxysmal nocturnal dyspnea and Denies slow heart rate Resp Denies cough, Denies dyspnea and Denies dyspnea on exertion GI Denies abdominal pain, Denies change in bowel habits, Denies excessive flatus, Denies nausea and Denies vomiting Denies urinary incontinence, Denies urinary hesitancy and Denies urinary urgency Musc Reports abnormal gait, Denies atrophy, Denies deformity and Denies limited range of motion Skin/Breast Denies bleeding lesions, Denies changing lesions and Denies rash Neuro Reports abnormal gait, Denies behavioral changes, Reports confusion, Denies lack of coordination, Reports memory loss and Reports tremor(s) Psych Denies behavioral changes, Reports confusion and Reports memory loss Physical exam (Primary Care) Vital Signs: Last Vital Signs Pulse 81 08/13/23 10:56 BP 132/80 08/13/23 10:56 Pulse Ox 99 08/13/23 10:56 Oxygen Delivery Method Room Air 08/13/23 10:56 BMI result Body Mass Index 29.0 Tobacco/Smoking Status: Tobacco use Status Tobacco use date assessed 08/13/23 08/13/23 10:58 Patient Tobacco Use Status Former Tobacco user 08/13/23 10:58 Tobacco use type Cigarette 01/02/24 10:58 e-Cigarette/Vaping Use Never Used 08/13/23 10:58 PHQ-9: PHQ-9 Score PHQ-9: Total score 3 08/13/23 11:29 Depression Screening Interpretation: Negative Thrive Assessment: Date of Thrive Assessment Date Thrive assessed 08/13/23 08/13/23 10:58 Currently or been in a relationship where the following occur: no concerns reported Const General: confusion Orientation/consciousness: oriented to person, oriented to time and confusion Limitations: wheelchair HENMT Head: Yes normal to inspection, Yes normocephalic and Yes atraumatic Ears: external ears normal Eyes General: appearance normal, both eyes and all related structures Eyelids: Yes eyelids normal Conjunctivae: conjunctivae normal Neck Neck: Yes normal visual inspection and Yes supple Resp Effort & Inspection: normal respiratory effort Auscultation: clear to auscultation bilaterally Cardio Jugular venous distension: no JVD Rate: regular rate Rhythm: regular rhythm Heart sounds: S1 normal heart sound present and S2 normal heart sound present GI Inspection: Yes normal to inspection Palpation (GI): Soft to palpation and nontender Auscultation: normal bowel sounds Skin General skin exam: no rashes or lesions noted Neuro General: oriented to person, oriented to time and confusion Extrem General: Yes full ROM Psych Appearance: grossly normal Results AMB Hemoglobin A1c AMB Hemoglobin A1c 7.3 % Last Edit by Ana Rosa Oswald on 08/13/23 11:12 Results Reviewed Results Reviewed: Laboratory Last Values Hgb A1c (Clinic) 7.3 % (4.0-6.0) H 08/13/23 10:59 Assessment and Plan Assessment & Plan (1) Physical exam: Code(s): Z00.00 - Encounter for general adult medical examination without abnormal findings Plan: Repeat in a year. (2) Diabetes mellitus: Code(s): E11.9 - Type 2 diabetes mellitus without complications Plan: Continue Jardiance, Tradjenta and metformin. A1c goal is equal or less than 7%. (3) Parkinsons disease: Code(s): G20 - Parkinson's disease Plan: Continue carbidopa-levodopa. Referred to neurology for a 2nd opinion. Orders: Orders Lipid Panel Today E78.5 - Hyperlipidemia, unspecified Thyroid Stimulating Hormone Today R41.3 - Other amnesia AMB Hemoglobin A1c Today Z13.9 - Encounter for screening, unspecified MM screening mammo BI Today Z12.31 - Encounter for screening mammogram for malignant neoplasm of breast Microalbumin, Random (w Creat) Today E11.9 - Type 2 diabetes mellitus without complications Vitamin D 25-OH Total Today E55.9 - Vitamin D deficiency, unspecified Vitamin B12 and Folate Today E53.8 - Deficiency of other specified B group vitamins Referrals Gastroenterology Referral D12.6 - Benign neoplasm of colon, unspecified Neurology Referral G20 - Parkinson's disease, R41.3 - Other amnesia Coding Level of Care Code Est Pt Prev Care >65y(60618) Diagnoses Physical exam Z00.00 Diabetes mellitus E11.9 Parkinsons disease G20 Additional Codes TODD-7 Assessment Billing - TODD-7 Assessment Tool: TODD-7 Assessment [id number] ([id number]) Time Spent (min) 34
== END 2023-08-13 11:26 | disposition home or self-care (01) ==
PROVIDERS: PCP Internal Medicine; Visit Provider Internal Medicine
DX: Z00.00 Encounter for general adult medical examination without abnormal findings (principal); E11.9 Type 2 diabetes mellitus without complications; G21.9 Secondary parkinsonism, unspecified
CPT/HCPCS: 83036; 99397

== ENCOUNTER 2023-09-30 12:47 | Outpatient (REF) | payer MEDICARE, MEDICAID, SELFPAY ==
--- NOTE | ~2023-09-30 | MM_ITS ---
EXAMINATION: MM SCREENING DIGITAL BREAST TOMOSYNTHESIS, BILATERAL CLINICAL INFORMATION: Screening. Asymptomatic. COMPARISON: Mammography: This study is compared with prior exams dating back to 2017. TECHNIQUE: Digital breast tomosynthesis is performed in both the craniocaudal and mediolateral oblique views along with computer-aided detection (CAD). Synthesized 2D images are generated from the tomosynthesis. FINDINGS: The breasts are almost entirely fatty (ACR BI-RADS breast composition Category a). There are no significant masses, abnormal calcifications, or other abnormalities. There are scattered, benign calcifications in each breast. MM/MM tomosynthesis screening BI IMPRESSION: No mammographic evidence of malignancy. ASSESSMENT: BI-RADS BI-RADS 2 - Benign Findings RECOMMENDATION: Routine annual mammography screening. 1 year F/U This examination should not preclude the clinical evaluation of a suspicious palpable abnormality. This patient's information was entered into a reminder system with a target due date for their next mammogram.
== END 2023-09-30 12:48 | disposition home or self-care (01) ==
LOC: HO.MAMMO 12:47
PROVIDERS: PCP Internal Medicine; Visit Provider Internal Medicine
DX: Z12.31 Encounter for screening mammogram for malignant neoplasm of breast (principal)
CPT/HCPCS: 77063; 77067

== ENCOUNTER → 2023-09-30 13:00 | Outpatient (BNV) | payer MEDICARE, MEDICAID, SELFPAY | PROVIDERS: PCP Internal Medicine; Visit Provider Radiology Diagnostic Radiology | DX: Z12.31 Encounter for screening mammogram for malignant neoplasm of breast (principal) | CPT/HCPCS: 77063; 77067 ==

== ENCOUNTER 2023-10-04 13:44 | Outpatient (REF) | payer MEDICARE, MEDICAID, SELFPAY ==
[2023-10-04 15:47] LABS: Influenza A PCR POSITIVE (Negative); Influenza B PCR NEGATIVE (Negative); Resp Syncy Virus RNA Qual PCR NEGATIVE (Negative); SARS COV2 PCR INHOUSE NEGATIVE (Negative)
== END 2023-10-04 13:45 | disposition home or self-care (01) ==
LOC: HO.LAB 13:44
PROVIDERS: PCP Internal Medicine; Visit Provider Internal Medicine
DX: Z11.52 Encounter for screening for COVID-19 (principal); Z20.822 Contact with and (suspected) exposure to COVID-19; R09.89 Other specified symptoms and signs involving the circulatory and respiratory systems
CPT/HCPCS: 0241U

== ENCOUNTER 2024-05-19 17:00 | Outpatient (AMB) | payer MEDICARE, MEDICAID, SELFPAY ==
--- NOTE | 2024-05-19 17:03 | A.OFFPC_ITS ---
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 Accompanied by: Son Allergies aspirin [Aspirin] Allergy (Intermediate, Verified 05/19/24 17:12) NOSE BLEED Medication List - Last Reconciled 05/19/24 by Amanda Rodriguez MD [adult diapers pull-ups As directed] amantadine HCl 100 mg PO BID 90 days blood pressure test kit-large As directed blood sugar diagnostic (FreeStyle Lite Strips) USE DIRECTED ONCE A DAY blood-glucose meter (FreeStyle Lite Meter kit) As directed once a day carbidopa-levodopa 25-100 mg (Sinemet) 2 tabs PO TID cholecalciferol (vitamin D3) 50 mcg PO DAILY 90 days cromolyn 4% 1 drp ophthalmic (eye) QID 7 days empagliflozin (Jardiance) 25 mg PO DAILY 90 days gabapentin 400 mg PO TID 30 days lancets (TRUEplus Lancets) Three times a day linagliptin (Tradjenta) 5 mg PO DAILY metformin 500 mg PO BID 90 days metoprolol succinate ER 12.5 mg (1/2 x 25 mg) PO BID 90 days oxycodone 10 mg PO Q8H PRN 30 days pantoprazole 40 mg PO DAILY 90 days pen needle, diabetic (BD Ultra-Fine Lawanda Pen Needle) As directed once daily ropinirole 0.75 mg PO TID rosuvastatin 40 mg PO DAILY 90 days sertraline 25 mg PO DAILY 90 days trazodone 50 mg PO DAILY triamcinolone acetonide 0.1% 1 appl topical BID 30 days underpads (Certainty Underpads) As directed walker As directed [wipes As directed] Tobacco use date assessed: 08/13/23 Fall risk assessment: No Falls in past year Last assessed Fall Risk: 05/19/24 Dental Screening Dental Screen Date: 08/13/23 HPI HPI Comments History of Present Illness Details This is a 74-year-old female with diabetes mellitus type 2, hypertension, hyperlipidemia, Parkinson's disease and mild recurrent major depression that comes today accompanied by son for follow-up on her conditions. A1c within goal. Blood pressure stable. Lipid panel will be order and her LDL goal should be less than 70. Parkinson's disease has no significantly progress and she follows with Neurology. In a wheelchair for long distance. Depression stable with SSRIs. [facility] Medical History (Updated 08/13/23 @ 11:59 by Amanda Rodriguez MD) Urge urinary incontinence Fecal incontinence Mild recurrent major depression Post-menopausal Screening for breast cancer Left upper quadrant abdominal pain Pre-op examination Restless leg syndrome Wheelchair bound Obesity Insomnia GERD (gastroesophageal reflux disease) Intertrigo Neuropathy Parkinsons disease Dyslipidemia Essential hypertension Unsteady gait Type 2 diabetes mellitus with diabetic polyneuropathy Rash Lumbar degenerative disc disease Surgical History Hx of mammogram Hx of colonoscopy Hx of eye surgery H/O right breast biopsy History of tubal ligation Family History Father No problems noted. Mother No problems noted. Sister Breast cancer S/P CABG x 1 Brother S/P CABG x 1 Cancer Social History Household Members: Children Housing: Apartment Alcohol intake: former Patient Tobacco Use Status: Former Tobacco user Tobacco use type: Cigarette e-Cigarette/Vaping Use: Never Used Second Hand Smoke Exposure: No service: No Current occupational status: disabled Cognitive needs: Yes Hearing needs: No Vision needs: No Questionnaire Thrive Questionnaire Date Thrive assessed: 08/13/23 TODD-7 AMB Questionnaire TODD-7 Date TODD - 7 assessed: 08/13/23 Source: Developed by Drs. Elliot Castanon, Lizz De Leon, Aldo Gonzalez and colleagues, with an educational adarsh from [employer]. Review of Systems Const All systems reviewed & are unremarkable except as noted in HPI and below Card Denies chest pain at rest, Denies chest pain with activity, Denies edema, Denies irregular heart rhythm, Denies claudication, Denies dyspnea, Denies dyspnea on exertion, Denies orthopnea, Denies paroxysmal nocturnal dyspnea and Denies slow heart rate Resp Denies cough, Denies dyspnea and Denies dyspnea on exertion GI Denies abdominal pain, Denies change in bowel habits, Denies excessive flatus, Denies nausea and Denies vomiting Denies urinary incontinence, Denies urinary hesitancy and Denies urinary urgency Musc Denies atrophy, Denies deformity and Denies limited range of motion Skin/Breast Denies bleeding lesions, Denies changing lesions and Denies rash Physical exam (Primary Care) Vital Signs: Last Vital Signs BP 128/80 05/19/24 17:04 BMI result Body Mass Index 26.5 Tobacco/Smoking Status: Tobacco use Status Tobacco use date assessed 08/13/23 05/19/24 17:12 Patient Tobacco Use Status Former Tobacco user 05/19/24 17:12 Tobacco use type Cigarette 05/19/24 17:12 e-Cigarette/Vaping Use Never Used 05/19/24 17:12 Thrive Assessment: Date of Thrive Assessment Date Thrive assessed 08/13/23 05/19/24 17:12 Const Limitations: wheelchair Resp Effort & Inspection: normal respiratory effort Auscultation: clear to auscultation bilaterally Cardio Jugular venous distension: no JVD Rate: regular rate Rhythm: regular rhythm Heart sounds: S1 normal heart sound present and S2 normal heart sound present Extrem General: Yes full ROM Office Procedures Flu Questionnaire Does the patient have a severe egg allergy?: No Does the patient have severe life threatening allergies?: No Does the patient have a fever or illness today?: No Has the patient ever had Guillain-Flushing Syndrome?: No Has the patient ever had any past reaction to a flu shot?: No Results AMB Hemoglobin A1c AMB Hemoglobin A1c 6.6 % Last Edit by VERA Vann on 05/19/24 17:1 8 Immunizations Fluarix Triv [id number] (PF) 45 mcg (15 mcg x 3)/0.5 mL IM syringe Performing Provider: Amanda Rodriguez MD Performing Location: [facility] – [place] [facility] Administered by: VERA Vann on 05/19/24 17:18 Dose Route Admin Location Dispensed Lot Number Expiration Date [facility] Flight Attendant/Inflight Supervisor 0.5 mL IM Right Deltoid 0.5 mL [id number] 02/08/25 [id number] [employer] VIS Given Date VIS Provided VIS Publication Date 05/19/24 Single Vaccine 21 Eligibility Eligibility Date Funding Source Not [facility] Eligible 05/19/24 Private Results Reviewed Results Reviewed: Laboratory Last Values Hgb A1c (Clinic) 6.6 % (4.0-6.0) H 05/19/24 17:03 Coding Level of Care Code Est Pt Level 4 (78775) Complex EM visit Add On G2211 Diagnoses Hyperlipidemia LDL goal <70 E78.5 Mild recurrent major depression F33.0 Parkinsons disease G20 Essential hypertension I10 Time Spent (min) 23 Assessment & Plan Assessment & Plan (1) Hyperlipidemia LDL goal <70: Code(s): E78.5 - Hyperlipidemia, unspecified Category: Medical Plan: Continue statins. Continue low-cholesterol diet. LDL goal is less than 70. (2) Mild recurrent major depression: Code(s): F33.0 - Major depressive disorder, recurrent, mild Category: Medical Plan: Continue SSRIs. (3) Parkinsons disease: Code(s): G20 - Parkinson's disease Category: Medical Plan: Continue carbidopa-levodopa. Follow-up with Neurology. (4) Essential hypertension: Code(s): I10 - Essential (primary) hypertension Category: Medical Plan: Continue metoprolol. Blood pressure goal is equal or less than 130/80. Orders: Orders AMB Hemoglobin A1c Today E11.9 - Type 2 diabetes mellitus without complications Lipid Panel Today E78.5 - Hyperlipidemia, unspecified Vitamin D 25-OH Total Today E55.9 - Vitamin D deficiency, unspecified Comprehensive [place]. Panel Fast Today E11.9 - Type 2 diabetes mellitus without complications Complete Blood Count Auto Diff Today D64.9 - Anemia, unspecified, R41.3 - Other amnesia Thyroid Stimulating Hormone Today R41.3 - Other amnesia Influenza [id number] Immunization Today Z23 - Encounter for immunization Microalbumin, Random (w Creat) Today R80.9 - Proteinuria, unspecified Vitamin B12 and Folate Today E53.8 - Deficiency of other specified B group vitamins, R41.3 - Other amnesia Medications: New lancets (FreeStyle Lancets) Use 1 lancet once a day 100 ea 3RF E11.9 - Type 2 diabetes mellitus without complications Refilled oxycodone Partial Fill upon patient request. 10 mg PO Q8H PRN 90 tabs 0RF pain 30 days blood-glucose meter (FreeStyle Lite Meter kit) As directed once a day 1 ea 0RF E11.42 - Type 2 diabetes mellitus with diabetic polyneuropathy blood sugar diagnostic (FreeStyle Lite Strips) USE DIRECTED ONCE A DAY 50 strips 11RF E11.42 - Type 2 diabetes mellitus with diabetic polyneuropathy
[2024-05-19 17:04] VITALS: BP 128/80; BMI 26.5
== END 2024-05-19 17:27 | disposition home or self-care (01) ==
PROVIDERS: PCP Internal Medicine; Visit Provider Internal Medicine
DX: E78.5 Hyperlipidemia, unspecified (principal); F33.0 Major depressive disorder, recurrent, mild; G20.C Parkinsonism, unspecified; E11.9 Type 2 diabetes mellitus without complications; I10 Essential (primary) hypertension; Z23 Encounter for immunization

== ENCOUNTER → 2024-05-19 17:00 | Outpatient (BNVA) | payer MEDICARE, MEDICAID, SELFPAY | PROVIDERS: PCP Internal Medicine; Visit Provider Internal Medicine | DX: Z23 Encounter for immunization (principal); Z13.1 Encounter for screening for diabetes mellitus; E78.5 Hyperlipidemia, unspecified; F33.0 Major depressive disorder, recurrent, mild; I10 Essential (primary) hypertension; G20.C Parkinsonism, unspecified | CPT/HCPCS: 83036; 90471; 90656; 99212 ==

== ENCOUNTER 2024-11-07 09:11 | Outpatient (REF) | payer MEDICARE, MEDICAID, SELFPAY ==
[2024-11-07 09:48] LABS: MANUAL DIFF FLAG NO
[2024-11-07 10:16] LABS: Basophils Percent Auto 0.5 % (0-2); Eosinophils Absolute Auto 0.1 X10*3/uL (0.0-0.4); Eosinophils Percent Auto 0.9 % (0-4); Hematocrit 40.3 % (37.0-47.0); Hemoglobin 12.9 g/dl (12.0-16.0); Imm Gran Abs Auto 0.01 X10*3/uL (0.00-0.03); Imm Gran Pct Auto 0.2 % (0.0-0.4); Lymphocytes Percent Auto 35.2 % (20-40); Mean Corpuscular Hemoglobin 29.9 pg (27.0-33.0); Mean Corpuscular Volume 93.5 fL (80.0-98.0); Mean Platelet Volume 10.5 fL (9.4-12.3); Monocytes Absolute Auto 0.4 X10*3/uL (0.1-1.2); Monocytes Percent Auto 7.2 % (2-11); Neutrophils Absolute Auto 3.1 x10*3/uL (2.0-8.3); Platelet Count 171 X10*3/uL (160-400); Red Blood Count 4.31 X10*6/uL (4.20-5.50); Red Cell Distribution Width 14.2 % (11.0-16.0); White Blood Count 5.5 X10*3/uL (4.8-10.8)
[2024-11-07 10:39] LABS: Microalbum/Creatinine Ratio Ur 314.9 ug/mg cr (<30)
[2024-11-07 10:52] LABS: Alanine Aminotransferase 7 U/L (0-31); Albumin Level 4.4 g/dL (3.5-5.0); Alkaline Phosphatase 140 U/L (39-117); Anion Gap 10 (12-20); Aspartate Amino Transferase 18 U/L (5-31); Bilirubin Total 0.6 mg/dL (0.0-1.0); Blood Urea Nitrogen 15 mg/dL (9-16); Calcium 10.4 mg/dL (8.4-10.2); Carbon Dioxide 30 mmol/L (22-29); Chloride 107 mmol/L (96-108); Cholesterol 112 mg/dL (<200); Estimated Glomerular Filt Rate 38; Glucose Fasting 125 mg/dL (60-99); HDL Cholesterol 41 mg/dL (>40); LDL Cholesterol Calculated 58 mg/dL (<100); Potassium 3.6 mmol/L (3.3-5.1); Sodium 143 mmol/L (135-145); Total Protein 7.3 g/dL (6.5-8.0); Triglycerides 66 mg/dL (<150)
[2024-11-07 11:11] LABS: Thyroid Stimulating Hormone 1.69 uIU/mL (0.32-4.0); Vitamin D 25-OH Total 75.3 ng/mL (>30)
[2024-11-07 11:13] LABS: Folate 10.9 ng/mL (> or = 4.0); Vitamin B12 403 pg/mL (200-900)
== END 2024-11-07 09:12 | disposition home or self-care (01) ==
LOC: HO.LAB 09:11
PROVIDERS: PCP Internal Medicine; Visit Provider Internal Medicine
DX: D64.9 Anemia, unspecified (principal); E55.9 Vitamin D deficiency, unspecified; E11.9 Type 2 diabetes mellitus without complications; R41.3 Other amnesia; E78.5 Hyperlipidemia, unspecified; R80.9 Proteinuria, unspecified; E53.8 Deficiency of other specified B group vitamins
CPT/HCPCS: 36415; 80053; 80061; 82043; 82306; 82570; 82607; 82746; 84443; 85025

== ENCOUNTER 2024-11-16 15:04 | Outpatient (AMB) | payer MEDICARE, MEDICAID, SELFPAY ==
--- NOTE | 2024-11-16 15:13 | A.OFFPC_ITS ---
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: Rest Room Maid Name: Amanda Rodriguez MD Information Interpreted: non-clinical & clinical Accompanied by: Son Allergies aspirin [Aspirin] Allergy (Intermediate, Verified 11/16/24 15:25) NOSE BLEED Medication List - Last Reconciled 11/16/24 by Amanda Rodriguez MD [adult diapers pull-ups As directed] amantadine HCl 100 mg PO BID 90 days blood pressure test kit-large As directed blood sugar diagnostic (FreeStyle Lite Strips) USE DIRECTED ONCE A DAY blood-glucose meter (FreeStyle Lite Meter kit) As directed once a day carbidopa-levodopa 25-100 mg (Sinemet) 2 tabs PO TID cholecalciferol (vitamin D3) 50 mcg PO DAILY 90 days cromolyn 4% 1 drp ophthalmic (eye) QID 7 days empagliflozin (Jardiance) 25 mg PO DAILY 90 days gabapentin 400 mg PO TID 90 days lancets (TRUEplus Lancets) Three times a day lancets (FreeStyle Lancets) Use 1 lancet once a day linagliptin (Tradjenta) 5 mg PO DAILY metformin 500 mg PO BID 90 days metoprolol succinate ER 12.5 mg (1/2 x 25 mg) PO BID 90 days oxycodone 10 mg PO Q8H PRN 30 days pantoprazole 40 mg PO DAILY 90 days pen needle, diabetic (BD Ultra-Fine Lawanda Pen Needle) As directed once daily ropinirole 0.75 mg PO TID rosuvastatin 40 mg PO DAILY 90 days sertraline 25 mg PO DAILY 90 days trazodone 50 mg PO DAILY triamcinolone acetonide 0.1% 1 appl topical BID 30 days underpads (Certainty Underpads) As directed walker As directed [wipes As directed] Tobacco use date assessed: 11/16/24 Fall risk assessment: No Falls in past year Last assessed Fall Risk: 11/16/24 Dental Screening Dental Screen Date: 11/16/24 Did you have a dental visit in the last 12 months?: No Did you have a dental problem in the last 6 months where you did not have access to dental care?: No Was dental information given to patient?: Patient declined HPI HPI Comments History of Present Illness Details The patient is a 74-year-old female presenting with a follow-up for multiple chronic conditions and newly reported difficulty swallowing. Current management for Type 2 Diabetes Mellitus has resulted in an A1c of 5.8%, indicating effective glycemic control. Blood pressure management is satisfactory with measurements at 120/82 mmHg. Since May, there has been a significant weight loss, raising concerns about nutritional intake. The patient's history with Parkinson's Disease results in the use of a wheelchair for mobility, worsening generalized weakness, and limiting physical activity. Additional concerns are difficulty swallowing, affecting both solids and tablets, and reduced appetite, which may influence current weight trends. The patient maintains a specific medication regimen and continues follow-ups with relevant specialists but does not detail previous or current dietary interventions or alterations for these issues. 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 [facility] Medical History (Updated 11/16/24 @ 15:36 by Amanda Rodriguez MD) Urge urinary incontinence Fecal incontinence Mild recurrent major depression Post-menopausal Screening for breast cancer Left upper quadrant abdominal pain Pre-op examination Restless leg syndrome Wheelchair bound Obesity Insomnia GERD (gastroesophageal reflux disease) Intertrigo Neuropathy Parkinsons disease Dyslipidemia Essential hypertension Unsteady gait Type 2 diabetes mellitus with diabetic polyneuropathy Rash Lumbar degenerative disc disease Surgical History Hx of mammogram Hx of colonoscopy Hx of eye surgery H/O right breast biopsy History of tubal ligation Family History Father No problems noted. Mother No problems noted. Sister Breast cancer S/P CABG x 1 Brother S/P CABG x 1 Cancer Social History Household Members: Children Housing: Apartment Alcohol intake: former Patient Tobacco Use Status: Former Tobacco user Tobacco use type: Cigarette e-Cigarette/Vaping Use: Never Used Second Hand Smoke Exposure: No service: No Current occupational status: disabled Cognitive needs: Yes Hearing needs: No Vision needs: No Questionnaire PHQ-9 Over the last 2 weeks, how often have you been bothered by any of the following problems? 1. Little interest or pleasure in doing things: several days 2. Feeling down, depressed, or hopeless: several days 3. Trouble falling or staying asleep, or sleeping too much: several days 4. Feeling tired or having little energy: several days 5. Poor appetite or overeating: not at all 6. Feeling bad about yourself - or that you are a failure or have let yourself or your family down: not at all 7. Trouble concentrating on things, such as reading the newspaper or watching television: not at all 8. Moving or speaking so slowly that other people could have noticed. Or the opposite - being so fidgety or restless that you have been moving around a lot more than usual: not at all 9. Thoughts that you would be better off or of hurting yourself in some way: not at all Total score: 4 Depression Screening Interpretation: Positive Depression Screening Follow-up: Existing condition and Follow-up Visit Requested Depression Screening Done: Yes 51699 - PHQ-9 Billing: Yes Source: Developed by Drs. Elliot Castanon, Lizz De Leon, Aldo Gonzalez and colleagues, with an educational adarsh from [employer]. Thrive Questionnaire Date Thrive assessed: 11/16/24 I am a: Patient What is your living situation today?: I have a steady place to live Within the past 12 months, did the food you bought not last and you didn't have the money to get more?: Never true Within the past 12 months, did you worry whether your food would run out before you got money to buy more?: Never true Do you have trouble paying for medicines?: No Do you have trouble getting transportation to medical appointments?: No Do you have trouble paying your heating and electricity bill?: No Do you have trouble taking care of your child, family member or friend?: No Do you have trouble with day-to-day activities such as bathing, preparing meals, shopping, managing finances, etc.?: No Are you currently unemployed and looking for a job?: No Are you interested in more education?: No Please select the resources that you would like help with: None THRIVE Score: 0 AUDIT C Alcohol Use Questionnaire (AUDIT-C) 1. How often do you have a drink containing alcohol?: Never Total Score: 0 Score Reviewed/Action Taken: No TODD-7 AMB Questionnaire TODD-7 Date TODD - 7 assessed: 11/16/24 Feeling nervous, anxious, or on edge: 1 = Several days Not being able to stop or control worryin = Not at all Worrying too much about different things: 1 = Several days Trouble relaxin = Not at all Being so restless that it is hard to sit still: 0 = Not at all Becoming easily annoyed or irritable: 0 = Not at all Feeling afraid as if something awful might happen: 0 = Not at all Total TODD-7 score (0-4 normal; 5-9 mild; 10-14 moderate; 15-21 severe): 2 Source: Developed by Drs. Elliot Castanon, Lizz De Leon, Aldo Gonzalez and colleagues, with an educational adarsh from [employer]. TODD-7 Assessment Billing TODD-7 Assessment Tool: TODD-7 Assessment 26898 Review of Systems Const All systems reviewed & are unremarkable except as noted in HPI and below ENT Reports dysphagia Card Denies chest pain at rest, Denies chest pain with activity, Denies edema, Denies irregular heart rhythm, Denies claudication, Denies dyspnea, Denies dyspnea on exertion, Denies orthopnea, Denies paroxysmal nocturnal dyspnea and Denies slow heart rate Resp Denies cough, Denies dyspnea and Denies dyspnea on exertion GI Denies abdominal pain, Denies change in bowel habits, Reports dysphagia, Denies excessive flatus, Denies nausea and Denies vomiting Neuro Denies lack of coordination Physical exam (Primary Care) Vital Signs: Last Vital Signs BP 120/82 11/16/24 15:14 BMI result Body Mass Index 22.8 Tobacco/Smoking Status: Tobacco use Status Tobacco use date assessed 11/16/24 11/16/24 15:25 Patient Tobacco Use Status Former Tobacco user 11/16/24 15:25 Tobacco use type Cigarette 11/16/24 15:25 e-Cigarette/Vaping Use Never Used 11/16/24 15:25 PHQ-9: PHQ-9 Score PHQ-9: Total score 4 11/16/24 15:32 Depression Screening Interpretation: Positive Depression Screening Follow-up: Existing condition and Follow-up Visit Requested Thrive Assessment: Date of Thrive Assessment Date Thrive assessed 11/16/24 11/16/24 15:25 Const Limitations: wheelchair Resp Effort & Inspection: normal respiratory effort Auscultation: clear to auscultation bilaterally Cardio Jugular venous distension: no JVD Rate: regular rate Rhythm: regular rhythm Heart sounds: S1 normal heart sound present and S2 normal heart sound present Extrem General: Yes full ROM Results AMB Hemoglobin A1c AMB Hemoglobin A1c 5.8 % Last Edit by VERA Vann on 11/16/24 15:2 6 Results Reviewed Results Reviewed: Laboratory Last Values Hgb A1c (Clinic) 5.8 % (4.0-6.0) 11/16/24 15:12 Coding Level of Care Code Est Pt Level 4 (00652) Complex EM visit Add On G2211 Diagnoses Dysphagia R13.10 Hyperlipidemia LDL goal <70 E78.5 Mild recurrent major depression F33.0 Parkinsons disease G20 Type 2 diabetes mellitus with diabetic polyneuropathy, unspecified whether termite treater insulin use E11.42 Diabetes mellitus termite treater insulin use: unspecified termite treater insulin use status Additional Codes TODD-7 Assessment Billing - TODD-7 Assessment Tool: TODD-7 Assessment 70865 ([id number]) PHQ-9 - 76192 - PHQ-9 Billing: Yes ([id number]) Time Spent (min) 23 Assessment & Plan Assessment & Plan (1) Dysphagia: Code(s): R13.10 - Dysphagia, unspecified Category: Medical (2) Hyperlipidemia LDL goal <70: Code(s): E78.5 - Hyperlipidemia, unspecified Category: Medical (3) Mild recurrent major depression: Code(s): F33.0 - Major depressive disorder, recurrent, mild Category: Medical (4) Parkinsons disease: Code(s): G20 - Parkinson's disease Category: Medical (5) Type 2 diabetes mellitus with diabetic polyneuropathy: Code(s): E11.42 - Type 2 diabetes mellitus with diabetic polyneuropathy Category: Medical Qualifiers: Diabetes mellitus fci insulin use: unspecified termite treater insulin use status Qualified Code(s): E11.42 - Type 2 diabetes mellitus with diabetic polyneuropathy Plan Management of diabetes remains consistent due to excellent A1c. Blood pressure control is effective with current treatment. The patient's weight loss and reported dysphagia warrant a referral for a swallowing evaluation and therapist rrt consultation; the arrangement for a bone study addresses o steoarthritis. Polypharmacy is adjusted through continual coordination to ensure all medications contribute positively to her overall management without adverse overlap. Chronic conditions of depression and Parkinson?s are monitored regularly. Labs are advised prior to follow-up. Neurological assessments, where suitable, ensure Parkinson's treatment remains aligned with symptomatology. Patient was informed and verbally consented to the use of an ambient scribe for clinic note documentation during this visit. I discussed the continuation of current management plans for chronic conditions due to successful outcomes, such as favorable A1c and blood pressure readings. The patient agreed to consult a therapist rrt and undergo a barium swallow evaluation to investigate new swallowing difficulties. Discussion of polypharmacy and medication adherence was reviewed thoroughly to maintain effective chronic disease control and ensure adequate intake of medications, such as gabapentin and Carbidopa-Levodopa. A bone density scan was arranged to monitor osteoarthritis progression, aligning with the established two-year schedule from 2020. Additional labs were scheduled, timed before the next appointment. The patient received guidance on monitoring symptoms and was advised on when to seek further medical advice. Orders: Orders AMB Hemoglobin A1c Today E11.9 - Type 2 diabetes mellitus without complications Vitamin D 25-OH Total 4 Months E55.9 - Vitamin D deficiency, unspecified Lipid Panel 4 Months E78.5 - Hyperlipidemia, unspecified Microalbumin, Random (w Creat) 4 Months R80.9 - Proteinuria, unspecified Comprehensive [place]. Panel Fast 4 Months R41.3 - Other amnesia Complete Blood Count Auto Diff 4 Months R41.3 - Other amnesia [place] barium swallow Today R13.10 - Dysphagia, unspecified XR DEXA axial skeleton Today Z78.0 - Asymptomatic menopausal state Thyroid Stimulating Hormone 4 Months R41.3 - Other amnesia Referrals Gastroenterology Referral R13.10 - Dysphagia, unspecified Patient Instructions: - Continue current diabetes and hypertension medications as prescribed. - Arrange for and complete a barium swallow test before the next visit. - Attend the gastroenterology consult for swallowing difficulties. - Schedule a bone density study to monitor osteoarthritis. - Perform lab tests before the next primary care check-up. - Monitor your weight and report any significant changes. - Maintain the current medication regimen and consult Neurology regularly for Parkinson's. - Contact if new symptoms arise or if current conditions worsen unexpectedly. - Ensure consistent intake of all prescribed medications.
[2024-11-16 15:14] VITALS: BP 120/82; BMI 22.8
== END 2024-11-16 15:37 | disposition home or self-care (01) ==
LOC: HO.HMCH 15:04
PROVIDERS: PCP Internal Medicine; Visit Provider Internal Medicine
DX: R13.10 Dysphagia, unspecified (principal); F33.0 Major depressive disorder, recurrent, mild; G20.C Parkinsonism, unspecified; E11.42 Type 2 diabetes mellitus with diabetic polyneuropathy; E78.5 Hyperlipidemia, unspecified

== ENCOUNTER → 2024-11-16 15:04 | Outpatient (BNVA) | payer MEDICARE, MEDICAID, SELFPAY | PROVIDERS: PCP Internal Medicine; Visit Provider Internal Medicine | DX: R13.10 Dysphagia, unspecified (principal); E78.5 Hyperlipidemia, unspecified; F33.0 Major depressive disorder, recurrent, mild; E11.42 Type 2 diabetes mellitus with diabetic polyneuropathy; G20.C Parkinsonism, unspecified | CPT/HCPCS: 83036; 96127; 99212 ==

== ENCOUNTER 2024-12-22 13:47 | Outpatient (REF) | payer MEDICARE, MEDICAID, SELFPAY ==
--- NOTE | ~2024-12-22 | MM_ITS ---
EXAMINATION: DXA BONE DENSITY AXIAL HISTORY: Z78.0 - Asymptomatic menopausal state TECHNIQUE: e-channel Dual energy absorptiometry (DEXA) of the lumbar spine, total left hip, and femoral neck was performed. COMPARISON: Comparison is made with the prior examination dated 05/24/2021. FINDINGS: The bone mineral density of the lumbar spine is 1.475 with a T-score of 2.6, and a Z-score of 4.2. This is indicative of normal bone mineral density. This represents a BMD change of 1.6% compared to the prior exam. This is not statistically significant. The bone mineral density of the left total hip is 1.062 with a T-score of 0.4, and a Z-score of 2.0. This is indicative of normal bone mineral density. This represents a BMD change of 1.1% compared to the prior exam. This is not statistically significant. The bone mineral density of the left femoral neck is 1.131 with a T-score of 0.7, and a Z-score of 2.4. This is indicative of normal bone mineral density. This represents a BMD change of 18.7% compared to the prior exam. FRACTURE RISK: The FRAX index suggests a ten year probability of major osteoporotic fracture of 3.6%, and of hip fracture 0.2%. MM/XR DEXA axial skeleton IMPRESSION: Based on bone mineral density, and according to World Health Organization (WHO) criteria, the diagnosis is consistent with normal bone mineral density. All bone density values are in grams per centimeter squared (g/cm2). Statistically, 68% of repeat scans fall within 1 SD (+/- 0.010 g/cm2 for AP spine L1-L4) and 1 SD (+/- 0.012 g/cm2 for femur total) FRAX is a trademark of the [employer]'s [employer], a World Health Organization (WHO) Collaborating Center. Electronically signed by: Elliot Lee MD 12/22/2024 02:47 PM EDT
== END 2024-12-22 13:48 | disposition home or self-care (01) ==
LOC: HO.MAMMO 13:47
PROVIDERS: PCP Internal Medicine; Visit Provider Internal Medicine
DX: Z13.820 Encounter for screening for osteoporosis (principal); Z78.0 Asymptomatic menopausal state
CPT/HCPCS: 77080

== ENCOUNTER → 2024-12-22 14:00 | Outpatient (BNV) | payer MEDICARE, MEDICAID, SELFPAY | PROVIDERS: PCP Internal Medicine; Visit Provider Radiology Diagnostic Radiology | DX: E28.39 Other primary ovarian failure (principal) | CPT/HCPCS: 77080 ==

== ENCOUNTER 2025-01-07 12:45 | Inpatient (IN) | payer MEDICARE, MEDICAID, SELFPAY ==
[2025-01-07] VITALS (57 sets, daily range): BP systolic 51–231; BP diastolic 27–188; PULSE 63–95; RESP 12–30; TEMP 28–36.2; O2SAT 65–100; BMI 22.6
--- NOTE | ~2025-01-07 | XR_ITS ---
EXAMINATION: XR CHEST 1 VIEW HISTORY: post intubation placement COMPARISON: Patent is made with the prior examination dated 01/07/2025. FINDINGS: A series of 3 AP portable views of the chest performed at 2:24 PM, 2:26 PM, and 2:30 PM are submitted. An endotracheal tube is in place with is tip proximal 0.4 0.0 cm above the teresa. The final image demonstrates an orogastric tube with its tip in the stomach. The lungs are expanded and clear. There is no pleural effusion, pneumothorax, or pulmonary vascular congestion. The heart is normal in size. There is degenerative disc disease of the spine. XR/XR chest 1V IMPRESSION: Lines and tubes in place as described. No acute cardiopulmonary abnormality. Electronically signed by: Elliot Lee MD 01/07/2025 03:00 PM EDT
--- NOTE | ~2025-01-07 | CT_ITS ---
CLINICAL HISTORY: ams CT head without contrast Comparison: None Findings: No intra-axial mass, midline shift, hydrocephalus, or acute hemorrhage. No significant atrophy-like change or white matter disease. There is no sinus or mastoid fluid. The orbits are unremarkable. There is no acute fracture. IMPRESSION: 1. No acute intracranial findings. This document has been electronically signed by: Viet Fuentes MD on 01/07/2025 19:10:57
--- NOTE | ~2025-01-07 | CT_ITS ---
CLINICAL HISTORY: ams septic CT chest without contrast Comparison: None Findings: Heart size is normal. Coronary artery calcifications are present. The visualized thyroid and mediastinum are unremarkable. The tip of the endotracheal tube is located 3.2 cm above the teresa. No consolidation or effusion. Lungs are clear. Stones are noted within the gallbladder. Enteric tube courses into the distal stomach, tip not included on this study. Diffuse idiopathic skeletal hyperostosis of the thoracic spine. IMPRESSION: 1. No acute findings in the chest. 2. ETT tip is 3.2 cm above the teresa. This document has been electronically signed by: Viet Fuentes MD on 01/07/2025 19:11:59
--- NOTE | ~2025-01-07 | XR_ITS ---
EXAMINATION: XR CHEST 1 VIEW HISTORY: cp COMPARISON: Comparison is made with the prior examination dated 02/28/1916. FINDINGS: A single AP portable view of the chest performed at 1:35 PM is submitted. The lungs are expanded and clear. There is no pleural effusion, pneumothorax, or pulmonary vascular congestion. The heart is normal in size. There is degenerative disc disease of the spine. XR/XR chest 1V IMPRESSION: No acute cardiopulmonary abnormality. Electronically signed by: Elliot Lee MD 01/07/2025 01:46 PM EDT
--- NOTE | ~2025-01-07 | CT_ITS ---
CLINICAL HISTORY: arf CT abdomen and pelvis without contrast Comparison: None Findings: No consolidation or effusion. Spleen, adrenal glands, pancreas and liver unremarkable. Stones are present in the gallbladder. Kidneys are unremarkable, without hydronephrosis. There is an enteric tube looped within the stomach, the tip is located in the proximal stomach directed back at the GE junction. Small bowel loops are normal caliber and there is no evidence of bowel obstruction. The appendix is not visualized. No ascites. There is a right common femoral venous catheter with tip in the right common iliac vein. There is a Jay catheter in the decompressed urinary bladder. There is a levoscoliosis of the lumbar spine. Multilevel degenerative change in the lumbar spine. Moderate calcification in the aorta and iliac vessels. IMPRESSION: 1. Enteric tube looped back upon itself within the stomach, tip is located in the proximal stomach directed at the GE junction. Consider repositioning. 2. No other acute findings within the abdomen or pelvis. 3. Cholelithiasis. This document has been electronically signed by: Viet Fuentes MD on 01/07/2025 19:20:23
[2025-01-07 13:01] LABS: Glucose, Whole Blood 33 mg/dL (60-115)
--- NOTE | 2025-01-07 13:01 | ECG_ITS ---
Test Reason : AMS Blood Pressure : */* mmHG Vent. Rate : 68 BPM Atrial Rate : 68 BPM P-R Int : 198 ms QRS Dur : 74 ms QT Int : 494 ms P-R-T Axes : 69 60 -50 degrees QTcB Int : 525 ms Normal sinus rhythm ST & T wave abnormality, consider anterolateral ischemia Abnormal ECG When compared with ECG of 08-Nov-2020 11:17, ST now depressed in Anterior leads Nonspecific T wave abnormality, improved in Inferior leads QT has lengthened Referred By: Mirian Freire Electronically Signed By: CELSO MATUTE MD
--- NOTE | 2025-01-07 13:07 | PC.NURSE ---
d50 given per provider verbal order as well as 1mg glucagon. rechecked POC @ 27 now, verbal order for second d50 to be given
[2025-01-07] MEDS: glucagon HCL 1 MG VIAL IVPUSH (13:13)
[2025-01-07] MEDS: Dextrose 50 % 25 GM/50 ML SYRINGE IVPUSH ×2 (13:13)
[2025-01-07] MEDS: Dextrose 5 % and 0.9 % NaCl 1,000 ML 125 ML IVCONT (13:21)
[2025-01-07 13:25] LABS: Glucose, Whole Blood 27 mg/dL (60-115)
[2025-01-07 13:25] LABS: Glucose, Whole Blood 315 mg/dL (60-115)
--- NOTE | 2025-01-07 13:33 | PC.NURSE ---
patient 99% on 3L nasal cannula at this time. patient now opening eyes
--- NOTE | 2025-01-07 13:35 | ED.AMS ---
HPI - Altered Mental Status General Chief Complaint: Altered Mental Status Stated Complaint: FAM STS WEAK,LETHARGIC,AMS,BS IN 40'S Time Seen by Provider: 01/07/25 12:47 History of Present Illness HPI narrative: Patient is a 74-year-old female presented today with having change in mental status. Per EMS patient has been getting worsening mental status over the last few days. EMS noted a sugar in the 30s. D10 was given. Patient was sent to the ER. She is unable to give detailed history. baseline Awake alert ambulatory. Has a history of Parkinson's. Related Data Home Medications ?Medication ?Instructions ?Recorded ?Confirmed blood pressure test kit-large #1 ea 09/06/20 11/16/24 carbidopa 25 mg-levodopa 100 mg 2 tab PO QID 09/06/20 11/16/24 tablet (Sinemet) walker #1 ea 09/06/20 11/16/24 amantadine HCl 100 mg capsule 100 mg PO BID@0700,1500 01/07/25 pantoprazole 40 mg tablet,delayed 40 mg PO DAILY@0630 01/07/25 release ropinirole 1 mg tablet 1 mg PO TID 01/07/25 Previous Rx's ?Medication ?Instructions ?Recorded pen needle, diabetic 32 gauge x #30 ea 12/07/20 5/32 (BD Ultra-Fine Lawanda Pen Needle) lancets 33 gauge (TRUEplus Lancets) #100 ea 12/13/20 adult diapers pull-ups #120 ea 08/29/21 underpads 30 X 36 (Certainty #150 ea 08/29/21 Underpads) wipes #200 ea 08/29/21 blood sugar diagnostic (FreeStyle #50 strips 05/19/24 Lite Strips) blood-glucose meter (FreeStyle #1 ea 05/19/24 Lite Meter kit) lancets 28 gauge (FreeStyle #100 ea 05/19/24 Lancets) linagliptin 5 mg tablet (Tradjenta) 5 mg PO DAILY #30 tabs 06/29/24 gabapentin 400 mg capsule 400 mg PO TID 90 days #270 caps 07/30/24 triamcinolone acetonide 0.1 % 1 appl topical BID 30 days #30 08/31/24 topical cream grams empagliflozin 25 mg tablet 25 mg PO DAILY 90 days #90 tabs 01/31/25 (Jardiance) metformin 500 mg tablet 500 mg PO BID 90 days #180 tabs 09/11/24 metoprolol succinate 25 mg 12.5 mg (1/2 x 25 mg) PO BID 90 09/11/24 tablet,extended release 24 hr days #90 tabs sertraline 25 mg tablet 25 mg PO DAILY 90 days #90 tabs 09/11/24 oxycodone 10 mg tablet 10 mg PO Q8H PRN pain 30 days #90 12/15/24 tabs cholecalciferol (vitamin D3) 50 50 mcg PO DAILY 90 days #90 caps 12/16/24 mcg (2,000 unit) capsule rosuvastatin 40 mg tablet 40 mg PO DAILY 90 days #90 tabs 12/16/24 Allergies Allergy/AdvReac Type Severity Reaction Status Date / Time aspirin [Aspirin] Allergy Intermediate NOSE BLEED Verified 01/07/25 13:01 Review of Systems Review of Systems: Patient unable to give detailed review of systems PMFSH Past Medical History Medical History Urge urinary incontinence Fecal incontinence Mild recurrent major depression Post-menopausal Screening for breast cancer Left upper quadrant abdominal pain Pre-op examination Restless leg syndrome Wheelchair bound Obesity Insomnia GERD (gastroesophageal reflux disease) Intertrigo Neuropathy Parkinsons disease Dyslipidemia Essential hypertension Unsteady gait Type 2 diabetes mellitus with diabetic polyneuropathy Rash Lumbar degenerative disc disease Surgical History Hx of mammogram Hx of colonoscopy Hx of eye surgery H/O right breast biopsy History of tubal ligation Family History Family History Father No problems noted. Mother No problems noted. Sister Breast cancer S/P CABG x 1 Brother S/P CABG x 1 Cancer Social History Social History Household Members: Children Housing: Apartment Alcohol intake: former Patient Tobacco Use Status: Former Tobacco user Tobacco use type: Cigarette e-Cigarette/Vaping Use: Never Used Second Hand Smoke Exposure: No Advance Directives: Yes Advance Directives on File: Yes Advance Directives Date on File: 04/06/21 Do you have a plan to hurt others: No Plan service: No Current occupational status: disabled Cognitive needs: Yes Hearing needs: No Vision needs: No Physical Exam ED Vital Signs: Vital Signs - 24 hr 01/07/25 12:59 01/07/25 14:16 01/07/25 14:21 Temperature 96.7 F L Pulse Rate 75 68 65 Respiratory Rate 14 Blood Pressure 120/90 H 60/32 L 59/34 L Pulse Oximetry 100 Oxygen Delivery Method Non-Rebreather Mask Fraction of Inspired Oxygen 01/07/25 14:23 01/07/25 14:26 01/07/25 14:27 Temperature Pulse Rate 63 67 Respiratory Rate Blood Pressure 58/34 L 66/37 L Pulse Oximetry Oxygen Delivery Method Fraction of Inspired Oxygen 80 01/07/25 14:37 01/07/25 14:50 01/07/25 15:02 Temperature Pulse Rate 71 72 74 Respiratory Rate 17 Blood Pressure 107/58 L 85/53 L 99/73 Pulse Oximetry Oxygen Delivery Method Fraction of Inspired Oxygen 01/07/25 15:08 01/07/25 15:17 01/07/25 15:19 Temperature Pulse Rate 74 75 Respiratory Rate 14 Blood Pressure 88/61 L 130/74 Pulse Oximetry Oxygen Delivery Method Fraction of Inspired Oxygen 50 01/07/25 15:27 01/07/25 15:38 Temperature Pulse Rate 75 74 Respiratory Rate Blood Pressure 125/105 H 111/57 L Pulse Oximetry Oxygen Delivery Method Fraction of Inspired Oxygen BMI result Body Mass Index 20.0 Appearance: Lethargic minimal grimace to pain No acute distress. Eyes: Pupils equal, round and reactive to light. ENT: Pharynx normal.very dry Neck: Normal inspection. Neck supple. No lymph nodes noted. No crepitus CVS: Normal heart rate and rhythm. Pulses normal. Normal S1 and S2 Respiratory: No respiratory distress. Breath sounds normal. No Wheezing. No rales Abdomen: Soft and nontender. No rigidity. No distention. good BS x4 Skin: Skin warm and dry. Normal skin color. Normal skin turgor. Extremities: No lower extremity edema. Neurovascular intact to all extremities. No Lacerations. No Rash Neuro: Lethargic minimal grimaces to pain Medications Administered Generic Name Dose Route Start Last Admin Trade Name Freq PRN Reason Stop Dose Admin Phenylephrine HCl 20 mg/ 252 mls @ 0 mls/hr 01/07/25 14:15 01/07/25 15:38 Sodium Chloride IVCONT 6 mcg/kg/min .Q0M LIZETH 262.63 mls/hr Administration Protocol Per Protocol Propofol 1,000 mg in 100 mls @ 0 mls/hr 01/07/25 14:45 01/07/25 15:19 Diprivan IVCONT 40 mcg/kg/min .Q0M LIZETH 13.9 mls/hr Titration Protocol Per Protocol Ketamine HCl 500 mg/ Sodium 255 mls @ 5.906 mls/hr 01/07/25 16:00 01/07/25 16:08 Chloride IVCONT 0.2 mg/kg/hr .Q24H LIZETH 5.91 mls/hr Administration Protocol 0.2 MG/KG/HR Discontinued Medications Generic Name Dose Route Start Last Admin Trade Name Freq PRN Reason Stop Dose Admin Ceftriaxone Sodium 2 gm 01/07/25 14:36 01/07/25 15:45 Ceftriaxone Sodium 2 Gm Vial IVPUSH 01/07/25 14:37 2 gm ONCE ONE Administration Dextrose 25 gm 01/07/25 13:10 01/07/25 13:13 Dextrose 50 % 25 Gm/50 Ml Syringe IVPUSH 01/07/25 13:11 25 gm ONCE ONE Administration Dextrose 25 gm 01/07/25 13:10 01/07/25 13:13 Dextrose 50 % 25 Gm/50 Ml Syringe IVPUSH 01/07/25 13:11 25 gm ONCE ONE Administration Glucagon 1 mg 01/07/25 13:10 01/07/25 13:13 Glucagon Hcl 1 Mg Vial IVPUSH 01/07/25 13:11 1 mg ONCE ONE Administration Dextrose/Sodium Chloride 1,000 mls @ 125 mls/hr 01/07/25 13:15 01/07/25 13:50 D5ns IVCONT Infused .Q8H LIZETH Infusion Sodium Chloride 2,000 mls @ 999 mls/hr 01/07/25 13:50 01/07/25 14:24 Ns IV 01/07/25 15:50 Infused .Q2H1M LIZETH Infusion Sodium Chloride 1,000 mls @ 999 mls/hr 01/07/25 14:45 01/07/25 15:47 Ns IV 01/07/25 15:45 999 mls/hr .Q1H1M LIZETH Administration Medical Decision Making Medical Decision Making MDM Narrative: Patient's sugar was noted to be about 30. An amp of D50 was given. Patient monitored for 5 minutes. Recheck sugar was still less than 30 additional dose of D50 was given glucagon was given started on a D5 normal saline drip. Patient at this point sugar was rechecked 1 more time it was now over 300. Will monitor carefully electrolytes ordered. Will check patient's mental status Patient blood sugar was corrected nevertheless blood pressure keep staying low. IV fluid was given. 2 L of IV fluid was started. Labs were sent. Patient remained very lethargic never fully responded to the sugar being corrected. Minimal grimace to pain. Patient was intubated. Additional labs ordered including cultures lactate. ABG was done. My interpretation of patient's ABG showed a severe metabolic acidosis with a pH of 7 pCO2 of 8. PaO2 was in the 800s after intubation. O2 was turned down. Bicarb drip was started. Pcu Rn was notified. Patient is chest x-ray initial x-ray was negative. Post intubation x-ray by my interpretation showed good placement of the ET tube and the 0 G-tube. Patient is EKG by my interpretation showed a sinus rhythm heart rate is 70 VA QRS is normal QTC is prolonged. Patient is currently on Chandan-Synephrine drip in order to maintain a blood pressure. Initially propofol was used for sedation CT scan of the chest abdomen pelvis ordered CT scan of the head per ordered patient's case discussed with family member. Differential Diagnosis Differential Diagnoses: The differential diagnosis associated with the presentation includes Hypoglycemia, infection, electrolyte disturbance Admission/Observation Consideration of admission/observation: Escalation of care including admission/observation considered Consult Healthcare Provider Management of the patient was discussed with: Senior Health Physics Technician (Pcu Rn) Lab Data [facility] Lab Attestation statement: I reviewed the patient's lab results. 01/07/25 13:37 01/07/25 15:26 Labs: Lab Results 01/07/25 01/07/25 01/07/25 Range/Units 12:52 13:09 13:21 WBC (4.8-10.8) X10*3/uL RBC (4.20-5.50) X10*6/uL Hgb (12.0-16.0) g/dl Hct (37.0-47.0) % MCV (80.0-98.0) fL MCH (27.0-33.0) pg MCHC (31.0-35.0) g/dl RDW (11.0-16.0) % Plt Count (160-400) X10*3/uL MPV (9.4-12.3) fL Immature Gran % (Auto) (0.0-0.4) % Neut % (Auto) (45-73) % Lymph % (Auto) (20-40) % [place] % (Auto) (2-11) % Eos % (Auto) (0-4) % Baso % (Auto) (0-2) % Lymph # (Auto) (1.2-4.9) X10*3/uL [place] # (Auto) (0.1-1.2) X10*3/uL Eos # (Auto) (0.0-0.4) X10*3/uL Baso # (Auto) (0.0-0.2) X10*3/uL Abs Immat Gran (auto) (0.00-0.03) X10*3/uL Absolute Neuts (auto) (2.0-8.3) x10*3/uL Absolute Nucleated RBC (0.0-0.012) X10*3/uL Nucleated RBC % (auto) (0.0-0.2) /100WBC O2 Saturation % ABG pH at Pt Temp (7.35-7.45) ABG pCO2 at Pt Temp (32-45) mmHg ABG pO2 at Pt Temp (83-108) mmHg ABG HCO3 (22-26) mmol/L ABG Base Excess (Actual) mmol/L Sodium (135-145) mmol/L Potassium (3.3-5.1) mmol/L Chloride (96-108) mmol/L Carbon Dioxide (22-29) mmol/L Anion Gap (12-20) BUN (9-16) mg/dL Creatinine (0.5-1.4) mg/dL Estim Creat Clear Calc Estimated GFR POC Glucose 33 L* 27 L* 315 H (60-115) mg/dL Random Glucose (60-115) mg/dL Calcium (8.4-10.2) mg/dL Total Bilirubin (0.0-1.0) mg/dL Direct Bilirubin (0.0-0.5) mg/dL AST (5-31) U/L ALT (0-31) U/L Alkaline Phosphatase (39-117) U/L Ammonia (13-55) umol/L Total Creatine Kinase (26-140) U/L Troponin I High Sens (<3.5-17.0) ng/L Total Protein (6.5-8.0) g/dL Albumin (3.5-5.0) g/dL 01/07/25 01/07/25 01/07/25 Range/Units 13:37 13:46 14:03 WBC 10.1 (4.8-10.8) X10*3/uL RBC 3.26 L D (4.20-5.50) X10*6/uL Hgb 10.0 L D (12.0-16.0) g/dl Hct 33.4 L (37.0-47.0) % MCV 102.5 H (80.0-98.0) fL MCH 30.7 (27.0-33.0) pg MCHC 29.9 L (31.0-35.0) g/dl RDW 17.1 H (11.0-16.0) % Plt Count 160 (160-400) X10*3/uL MPV 12.7 H (9.4-12.3) fL Immature Gran % (Auto) 0.6 H (0.0-0.4) % Neut % (Auto) 82.6 H (45-73) % Lymph % (Auto) 9.3 L (20-40) % [place] % (Auto) 7.4 (2-11) % Eos % (Auto) 0.0 (0-4) % Baso % (Auto) 0.1 (0-2) % Lymph # (Auto) 0.9 L (1.2-4.9) X10*3/uL [place] # (Auto) 0.8 (0.1-1.2) X10*3/uL Eos # (Auto) 0.0 (0.0-0.4) X10*3/uL Baso # (Auto) 0.0 (0.0-0.2) X10*3/uL Abs Immat Gran (auto) 0.06 H (0.00-0.03) X10*3/uL Absolute Neuts (auto) 8.4 H (2.0-8.3) x10*3/uL Absolute Nucleated RBC 0.000 (0.0-0.012) X10*3/uL Nucleated RBC % (auto) 0.0 (0.0-0.2) /100WBC O2 Saturation % ABG pH at Pt Temp (7.35-7.45) ABG pCO2 at Pt Temp (32-45) mmHg ABG pO2 at Pt Temp (83-108) mmHg ABG HCO3 (22-26) mmol/L ABG Base Excess (Actual) mmol/L Sodium 144 (135-145) mmol/L Potassium 4.6 D (3.3-5.1) mmol/L Chloride 102 (96-108) mmol/L Carbon Dioxide 6 L* D (22-29) mmol/L Anion Gap 41 H (12-20) BUN 79 H (9-16) mg/dL Creatinine 8.58 H* (0.5-1.4) mg/dL Estim Creat Clear Calc 5.4 Estimated GFR 5 POC Glucose 490 H* 350 H* (60-115) mg/dL Random Glucose 440 H* (60-115) mg/dL Calcium 7.7 L D (8.4-10.2) mg/dL Total Bilirubin 0.4 (0.0-1.0) mg/dL Direct Bilirubin 0.2 (0.0-0.5) mg/dL AST 149 H (5-31) U/L ALT 8 (0-31) U/L Alkaline Phosphatase 95 (39-117) U/L Ammonia 71 H (13-55) umol/L Total Creatine Kinase (26-140) U/L Troponin I High Sens 94.6 H* (<3.5-17.0) ng/L Total Protein 5.4 L (6.5-8.0) g/dL Albumin 3.1 L (3.5-5.0) g/dL 01/07/25 01/07/25 01/07/25 Range/Units 14:39 15:26 15:36 WBC (4.8-10.8) X10*3/uL RBC (4.20-5.50) X10*6/uL Hgb (12.0-16.0) g/dl Hct (37.0-47.0) % MCV (80.0-98.0) fL MCH (27.0-33.0) pg MCHC (31.0-35.0) g/dl RDW (11.0-16.0) % Plt Count (160-400) X10*3/uL MPV (9.4-12.3) fL Immature Gran % (Auto) (0.0-0.4) % Neut % (Auto) (45-73) % Lymph % (Auto) (20-40) % [place] % (Auto) (2-11) % Eos % (Auto) (0-4) % Baso % (Auto) (0-2) % Lymph # (Auto) (1.2-4.9) X10*3/uL [place] # (Auto) (0.1-1.2) X10*3/uL Eos # (Auto) (0.0-0.4) X10*3/uL Baso # (Auto) (0.0-0.2) X10*3/uL Abs Immat Gran (auto) (0.00-0.03) X10*3/uL Absolute Neuts (auto) (2.0-8.3) x10*3/uL Absolute Nucleated RBC (0.0-0.012) X10*3/uL Nucleated RBC % (auto) (0.0-0.2) /100WBC O2 Saturation % ABG pH at Pt Temp (7.35-7.45) ABG pCO2 at Pt Temp (32-45) mmHg ABG pO2 at Pt Temp (83-108) mmHg ABG HCO3 (22-26) mmol/L ABG Base Excess (Actual) mmol/L Sodium 145 (135-145) mmol/L Potassium 4.2 (3.3-5.1) mmol/L Chloride 107 (96-108) mmol/L Carbon Dioxide 5 L* (22-29) mmol/L Anion Gap 37 H (12-20) BUN 83 H (9-16) mg/dL Creatinine 8.00 H* (0.5-1.4) mg/dL Estim Creat Clear Calc 5.8 Estimated GFR 5 POC Glucose 185 H 269 H (60-115) mg/dL Random Glucose 356 H* (60-115) mg/dL Calcium 7.3 L (8.4-10.2) mg/dL Total Bilirubin (0.0-1.0) mg/dL Direct Bilirubin (0.0-0.5) mg/dL AST (5-31) U/L ALT (0-31) U/L Alkaline Phosphatase (39-117) U/L Ammonia (13-55) umol/L Total Creatine Kinase 8106 H (26-140) U/L Troponin I High Sens (<3.5-17.0) ng/L Total Protein (6.5-8.0) g/dL Albumin (3.5-5.0) g/dL 01/07/25 Range/Units 16:07 WBC (4.8-10.8) X10*3/uL RBC (4.20-5.50) X10*6/uL Hgb (12.0-16.0) g/dl Hct (37.0-47.0) % MCV (80.0-98.0) fL MCH (27.0-33.0) pg MCHC (31.0-35.0) g/dl RDW (11.0-16.0) % Plt Count (160-400) X10*3/uL MPV (9.4-12.3) fL Immature Gran % (Auto) (0.0-0.4) % Neut % (Auto) (45-73) % Lymph % (Auto) (20-40) % [place] % (Auto) (2-11) % Eos % (Auto) (0-4) % Baso % (Auto) (0-2) % Lymph # (Auto) (1.2-4.9) X10*3/uL [place] # (Auto) (0.1-1.2) X10*3/uL Eos # (Auto) (0.0-0.4) X10*3/uL Baso # (Auto) (0.0-0.2) X10*3/uL Abs Immat Gran (auto) (0.00-0.03) X10*3/uL Absolute Neuts (auto) (2.0-8.3) x10*3/uL Absolute Nucleated RBC (0.0-0.012) X10*3/uL Nucleated RBC % (auto) (0.0-0.2) /100WBC O2 Saturation 100.0 % ABG pH at Pt Temp 6.92 L* (7.35-7.45) ABG pCO2 at Pt Temp 10 L* (32-45) mmHg ABG pO2 at Pt Temp 695 H (83-108) mmHg ABG HCO3 2 L (22-26) mmol/L ABG Base Excess (Actual) -28.1 mmol/L Sodium (135-145) mmol/L Potassium (3.3-5.1) mmol/L Chloride (96-108) mmol/L Carbon Dioxide (22-29) mmol/L Anion Gap (12-20) BUN (9-16) mg/dL Creatinine (0.5-1.4) mg/dL Estim Creat Clear Calc Estimated GFR POC Glucose (60-115) mg/dL Random Glucose (60-115) mg/dL Calcium (8.4-10.2) mg/dL Total Bilirubin (0.0-1.0) mg/dL Direct Bilirubin (0.0-0.5) mg/dL AST (5-31) U/L ALT (0-31) U/L Alkaline Phosphatase (39-117) U/L Ammonia (13-55) umol/L Total Creatine Kinase (26-140) U/L Troponin I High Sens (<3.5-17.0) ng/L Total Protein (6.5-8.0) g/dL Albumin (3.5-5.0) g/dL ABG Data Attestation ABG: I personally reviewed and interpreted this ABG as follows: (Severe metabolic acidosis) Independent Interpretation I performed an independent interpretation of an: EKG (Please see above) and Plain X-Ray (Initial chest x-ray showed negative pneumonia negative pneumothorax 2nd chest x-ray showed patient intubated 0 G-tube in place) Radiology Impression Discussion of test interpretation with radiology: I have reviewed the radiologist's reading. Independent Historian Clinical information obtained from an independent historian. History obtained from or confirmed by: Other (Discussed with patient's family) External Record Review External record reviewed: Inpatient record and Office record Chronic Conditions Patient?s care impacted by: Diabetes Parkinson's, dementia Social Determinants Patient?s care significantly limited by Social Determinants of Health including: Problems related to primary support group Procedures Central Line Placement Right Femoral: Time Out Performed: Yes Patient Placed on Monitor/Pulse Ox: Yes MD Prep: mask, gown and gloves Central Line Prep: Chlorhexidine scrub Local Anesthetic: lidocaine 1% Amount of anesthesia used (mL): 3 Ultrasound Used for Placement: No Central Line Lumen Inserted: triple Post Procedure: sutured in place, good blood return, all ports aspirated, flushed, capped and sterile dressing applied Patient Tolerated Procedure: well Complications: none Intubation Intubation Type:: Endotracheal Tube Insertion Intubation Date:: 01/07/25 Intubation Time:: 16:31 sedative: Etomidate Mg Given: 20 paralytic: Succinylcholine Mg Given: 100 Laryngoscope: Hetal ET Tube Size: 7.5 ET Tube Uncuffed: No Tube Secured Depth (cm): 23 Tube Secured Location: lips Tube Placement Confirmation: visualized tube passing through cords, equal breath sounds bilaterally, no breath sounds over epigastrium and confirmation by capnometry Patient Tolerated Procedure: well Intubation Complications: none Critical Care Time Critical Care Time Critical Care Time: Yes Total Critical Care Time: 90 Attestation: I have personally provided 90 minutes of critical care time exclusive of time spent on separately billable procedures. ?Time includes review of lab data, radiology results, discussion with consultants, and monitoring for potential decompensation. ?Interventions were performed as documented above Discharge Plan Discharge Clinical Impression: Parkinsons disease, Metabolic acidosis, Acute renal insufficiency, Acute hypotension Patient Disposition: Admitted As Inpatient Prescriptions: No Action (DME) pen needle, diabetic [BD Ultra-Fine Lawanda Pen Needle] 32 gauge x 5/32 needle See Rx Instructions .ROUTE .MEDSUPPLY Qty: 30 11RF Rx Instructions: As directed once daily cromolyn 4 % drops 1 drp ophthalmic (eye) QID 7 Days Qty: 10 1RF Tradjenta 5 mg tablet 5 mg PO DAILY Qty: 30 6RF gabapentin 400 mg capsule 400 mg PO TID 90 Days Qty: 270 1RF triamcinolone acetonide 0.1 % cream 1 appl topical BID 30 Days Qty: 30 1RF Jardiance 25 mg tablet 25 mg PO DAILY 90 Days Qty: 90 1RF metoprolol succinate 25 mg tablet extended release 24 hr 12.5 mg PO BID 90 Days Qty: 90 1RF metformin 500 mg tablet 500 mg PO BID 90 Days Qty: 180 1RF sertraline 25 mg tablet 25 mg PO DAILY 90 Days Qty: 90 1RF oxycodone 10 mg tablet 10 mg PO Q8H PRN (Reason: pain) 30 Days Qty: 90 0RF Rx Instructions: Partial Fill upon patient request. cholecalciferol (vitamin D3) 50 mcg (2,000 unit) capsule 50 mcg PO DAILY 90 Days Qty: 90 1RF rosuvastatin 40 mg tablet 40 mg PO DAILY 90 Days Qty: 90 0RF ropinirole 1 mg tablet 1 mg PO TID amantadine HCl 100 mg capsule 100 mg PO BID@0700,1500 pantoprazole 40 mg tablet,delayed release (DR/EC) 40 mg PO DAILY@0630 (DME) adult diapers pull-ups X-large See Rx Instructions .Route .MEDSUPPLY Qty: 120 6RF Rx Instructions: As directed (DME) underpads [Certainty Underpads] 30 X 36 pad See Rx Instructions .Route Qty: 150 6RF Rx Instructions: As directed (DME) wipes See Rx Instructions .Route .MEDSUPPLY Qty: 200 6RF Rx Instructions: As directed (DME) blood pressure test kit-large Kit See Rx Instructions .ROUTE .MEDSUPPLY Qty: 1 Rx Instructions: As directed (DME) walker Misc See Rx Instructions .ROUTE .MEDSUPPLY Qty: 1 Rx Instructions: As directed carbidopa-levodopa [Sinemet] 25-100 mg tablet 2 tab PO QID (DME) lancets [TRUEplus Lancets] 33 gauge misc See Rx Instructions .ROUTE .MEDSUPPLY Qty: 100 11RF Rx Instructions: Three times a day (DME) blood-glucose meter [FreeStyle Lite Meter] Kit See Rx Instructions .ROUTE .MEDSUPPLY Qty: 1 0RF Rx Instructions: As directed once a day (DME) FreeStyle Lite Strips Strip See Rx Instructions .ROUTE .COMPLEX Qty: 50 11RF Dose Instruction: USE DIRECTED ONCE A DAY Rx Instructions: USE DIRECTED ONCE A DAY (DME) lancets [FreeStyle Lancets] 28 gauge misc See Rx Instructions .Route Qty: 100 3RF Rx Instructions: Use 1 lancet once a day Print Language: Maltese
[2025-01-07 13:41] LABS: MANUAL DIFF FLAG NO
[2025-01-07 13:44] LABS: Basophils Percent Auto 0.1 % (0-2); Hematocrit 33.4 % (37.0-47.0); Imm Gran Abs Auto 0.06 X10*3/uL (0.00-0.03); Imm Gran Pct Auto 0.6 % (0.0-0.4); Lymphocytes Absolute Auto 0.9 X10*3/uL (1.2-4.9); Lymphocytes Percent Auto 9.3 % (20-40); Mean Corpuscular HGB Conc 29.9 g/dl (31.0-35.0); Mean Corpuscular Hemoglobin 30.7 pg (27.0-33.0); Mean Corpuscular Volume 102.5 fL (80.0-98.0); Mean Platelet Volume 12.7 fL (9.4-12.3); Monocytes Absolute Auto 0.8 X10*3/uL (0.1-1.2); Monocytes Percent Auto 7.4 % (2-11); Neutrophils Absolute Auto 8.4 x10*3/uL (2.0-8.3); Neutrophils Percent Auto 82.6 % (45-73); Platelet Count 160 X10*3/uL (160-400); Red Blood Count 3.26 X10*6/uL (4.20-5.50); Red Cell Distribution Width 17.1 % (11.0-16.0); White Blood Count 10.1 X10*3/uL (4.8-10.8)
[2025-01-07 13:50] LABS: Glucose, Whole Blood 490 mg/dL (60-115)
[2025-01-07] MEDS: 0.9 % Sodium Chloride 2,000 ML 999 ML IV (13:50)
[2025-01-07 13:54] LABS: Ammonia 71 umol/L (13-55)
[2025-01-07 14:06] LABS: Glucose, Whole Blood 350 mg/dL (60-115)
[2025-01-07 14:14] LABS: Alanine Aminotransferase 8 U/L (0-31); Albumin Level 3.1 g/dL (3.5-5.0); Alkaline Phosphatase 95 U/L (39-117); Anion Gap 41 (12-20); Aspartate Amino Transferase 149 U/L (5-31); Bilirubin Direct 0.2 mg/dL (0.0-0.5); Bilirubin Total 0.4 mg/dL (0.0-1.0); Blood Urea Nitrogen 79 mg/dL (9-16); Calcium 7.7 mg/dL (8.4-10.2); Carbon Dioxide 6 mmol/L (22-29); Chloride 102 mmol/L (96-108); Creatinine Clr Calc Pharmacy 5.4; Estimated Glomerular Filt Rate 5; Glucose Random 440 mg/dL (60-115); Potassium 4.6 mmol/L (3.3-5.1); Sodium 144 mmol/L (135-145); Total Protein 5.4 g/dL (6.5-8.0)
[2025-01-07] MEDS: Phenylephrine HCL 20 MG in 0.9 % Sodium Chloride 250 ML 21.89 MG IVCONT (14:16)
[2025-01-07 14:21] LABS: Troponin-I High Sensitivity 94.6 ng/L (<3.5-17.0)
[2025-01-07 14:44] LABS: Glucose, Whole Blood 185 mg/dL (60-115)
[2025-01-07] MEDS: propofoL 1,000 MG/100 ML VIAL 10.42 MG IVCONT (15:02)
--- NOTE | 2025-01-07 15:09 | P.HPCC_ITS ---
History of Present Illness Date of Service: 01/07/25 Chief Complaint: altered sensorium 74-year-old lady with past medical history of hypertension, hyperlipidemia, diabetes mellitus on Jardiance and Tradjenta, Parkinson's disease which is slowly worsening for the past several months, dysphagia was brought into the ED unresponsive. Her blood sugar was found to be less than 30, she was intubated and placed on ventilator support. according to her PCPs note in November 2024: Since May, there has been a significant weight loss, raising concerns about nutritional intake. The patient's history with Parkinson's Disease results in the use of a wheelchair for mobility, worsening generalized weakness, and limiting physical activity. Additional concerns were difficulty swallowing, affecting both solids and tablets, and reduced appetite. Review of Systems 2 Review of Systems: unable to obtain as patient is unresponsive and on ventilator support PMFSH Past Medical History Medical History Urge urinary incontinence Fecal incontinence Mild recurrent major depression Post-menopausal Screening for breast cancer Left upper quadrant abdominal pain Pre-op examination Restless leg syndrome Wheelchair bound Obesity Insomnia GERD (gastroesophageal reflux disease) Intertrigo Neuropathy Parkinsons disease Dyslipidemia Essential hypertension Unsteady gait Type 2 diabetes mellitus with diabetic polyneuropathy Rash Lumbar degenerative disc disease Family History Family History Father No problems noted. Mother No problems noted. Sister Breast cancer S/P CABG x 1 Brother S/P CABG x 1 Cancer Surgical History Surgical History Hx of mammogram Hx of colonoscopy Hx of eye surgery H/O right breast biopsy History of tubal ligation Social History Social History Household Members: Children Housing: Apartment Alcohol intake: former Patient Tobacco Use Status: Former Tobacco user Tobacco use type: Cigarette e-Cigarette/Vaping Use: Never Used Second Hand Smoke Exposure: No Advance Directives: Yes Advance Directives on File: Yes Advance Directives Date on File: 04/06/21 Do you have a plan to hurt others: No Plan service: No Current occupational status: disabled Cognitive needs: Yes Hearing needs: No Vision needs: No Meds Allergies Allergy/AdvReac Type Severity Reaction Status Date / Time aspirin [Aspirin] Allergy Intermediate NOSE BLEED Verified 01/07/25 13:01 Active Medications: Current Medications Phenylephrine HCl 20 mg/ (Sodium Chloride) 252 mls @ 0 mls/hr IVCONT .Q0M LIZETH; Protocol Last Titration: 01/07/25 15:08 Dose: 6 mcg/kg/min, 262.63 mls/hr Sodium Chloride (Ns) 2,000 mls @ 999 mls/hr IV .Q2H1M LIZETH Stop: 01/07/25 15:50 Last Infusion: 01/07/25 14:24 Dose: Infused Sodium Chloride (Ns) 1,000 mls @ 999 mls/hr IV .Q1H1M LIZETH Stop: 01/07/25 15:45 Propofol (Diprivan) 1,000 mg in 100 mls @ 0 mls/hr IVCONT .Q0M LIZETH; Protocol Last Admin: 01/07/25 15:02 Dose: 30 mcg/kg/min, 10.42 mls/hr Home Medications ?Medication ?Instructions ?Recorded ?Confirmed ?Last Taken ?Type blood pressure test kit-large #1 ea 09/06/20 11/16/24 Unknown History carbidopa 25 mg-levodopa 100 mg 2 tab PO TID 09/06/20 11/16/24 Unknown History tablet (Sinemet) ropinirole 0.25 mg tablet 0.75 mg PO TID 09/06/20 11/16/24 Unknown History trazodone 50 mg tablet 50 mg PO DAILY 09/06/20 11/16/24 Unknown History walker #1 ea 09/06/20 11/16/24 Unknown History Physical Exam 2 Vital Signs: Vital Signs: Last Vital Signs Temp 96.7 F L 01/07/25 12:59 Pulse 74 01/07/25 15:08 Resp 17 01/07/25 15:02 BP 88/61 L 01/07/25 15:08 Pulse Ox 100 01/07/25 12:59 O2 Del Method Non-Rebreather Ma sk 01/07/25 12:59 FiO2 80 01/07/25 14:26 BMI result Body Mass Index 20.0 General: elderly, emaciated lady in severe acute distress who is chronically ill and tired appearing Nutritional Appearance: well nourished and overweight Eyes: appearance normal, both eyes and all related structures; Alignment and Position: alignment normal and position normal Neck: No lymphadenopathy, no thyromegaly Resp: bilateral air entry equal, occasional added sounds present Cardio: Regular rate, regular rhythm; Heart sounds: S1 normal heart sound present and S2 normal heart sound present GI: soft, nontender, no guarding, no hepatosplenomegaly : bladder normal to inspection, bladder normal to palpation, no renal angle tenderness Skin: no rashes or lesions noted and elasticity normal Neuro: unable to do a neuro exam as patient is sedated Results Labs 01/07/25 13:37 01/07/25 13:37 Labs: Laboratory Results - last 24 hr 01/07/25 01/07/25 01/07/25 12:52 13:09 13:21 MCV MCH MCHC RDW Plt Count MPV Immature Gran % (Auto) Neut % (Auto) Lymph % (Auto) [place] % (Auto) Eos % (Auto) Baso % (Auto) Lymph # (Auto) [place] # (Auto) Eos # (Auto) Baso # (Auto) Abs Immat Gran (auto) Absolute Neuts (auto) Absolute Nucleated RBC Nucleated RBC % (auto) Anion Gap Estim Creat Clear Calc Estimated GFR POC Glucose 33 L* 27 L* 315 H Random Glucose Calcium Total Bilirubin Direct Bilirubin AST ALT Alkaline Phosphatase Ammonia Troponin I High Sens Total Protein Albumin 01/07/25 01/07/25 01/07/25 13:37 13:46 14:03 MCV 102.5 H MCH 30.7 MCHC 29.9 L RDW 17.1 H Plt Count 160 MPV 12.7 H Immature Gran % (Auto) 0.6 H Neut % (Auto) 82.6 H Lymph % (Auto) 9.3 L [place] % (Auto) 7.4 Eos % (Auto) 0.0 Baso % (Auto) 0.1 Lymph # (Auto) 0.9 L [place] # (Auto) 0.8 Eos # (Auto) 0.0 Baso # (Auto) 0.0 Abs Immat Gran (auto) 0.06 H Absolute Neuts (auto) 8.4 H Absolute Nucleated RBC 0.000 Nucleated RBC % (auto) 0.0 Anion Gap 41 H Estim Creat Clear Calc 5.4 Estimated GFR 5 POC Glucose 490 H* 350 H* Random Glucose 440 H* Calcium 7.7 L D Total Bilirubin 0.4 Direct Bilirubin 0.2 AST 149 H ALT 8 Alkaline Phosphatase 95 Ammonia 71 H Troponin I High Sens 94.6 H* Total Protein 5.4 L Albumin 3.1 L 01/07/25 14:39 MCV MCH MCHC RDW Plt Count MPV Immature Gran % (Auto) Neut % (Auto) Lymph % (Auto) [place] % (Auto) Eos % (Auto) Baso % (Auto) Lymph # (Auto) [place] # (Auto) Eos # (Auto) Baso # (Auto) Abs Immat Gran (auto) Absolute Neuts (auto) Absolute Nucleated RBC Nucleated RBC % (auto) Anion Gap Estim Creat Clear Calc Estimated GFR POC Glucose 185 H Random Glucose Calcium Total Bilirubin Direct Bilirubin AST ALT Alkaline Phosphatase Ammonia Troponin I High Sens Total Protein Albumin Imaging Radiologist's Impressions: Impressions Chest X-Ray 01/07/25 13:01 IMPRESSION: No acute cardiopulmonary abnormality. Electronically signed by: Elliot Lee MD 01/07/2025 01:46 PM EDT RP Chest X-Ray 01/07/25 14:20 IMPRESSION: Lines and tubes in place as described. No acute cardiopulmonary abnormality. Electronically signed by: Elliot Lee MD 01/07/2025 03:00 PM EDT RP Assessment and Plan (1) Acute respiratory failure: Status: Acute (2) Hypovolemic shock: Status: Acute (3) Acute kidney injury: Status: Acute (4) Metabolic acidosis: Status: Acute (5) Hyperkalemia: Status: Acute Plan Neuro: Acute encephalopathy possibly due to metabolic encephalopathy from hypoglycemia, metabolic acidosis and acute kidney injury we will get CT head to rule out other etiologies On ketamine for sedation due to hypotension and hypoglycemia, and fentanyl for analgesia Close neurological status monitoring in the ICU every hour Cardiac: hypovolemicShock: Possibly secondary to poor oral intake and positive pressure ventilation we will give her sodium bicarbonate fluid boluses On Levophed support, titrate Levophed to keep map above 65 mm Hg Respiratory: Acute hypoxemic respiratory failure due to due to poor respiratory drive Currently on ventilator support On PRVC mode FiO80%, PEEP 5, TV320, RR20 Peak pressures and plateau pressures are under the curve Ventilator management bundle with head end elevation, aspiration precaution, chlorhexidine mouthwash, daily awakening trials, daily spontaneous breathing trials GI: We will start on tube feeds Renal: Acute kidney injury possibly secondary to hypovolemia and shock leading to ATN we will get a CPK and ketone levels Baseline creatinine normal, creatinine today is 8.58, should improve with IV fluids We will closely monitor I's and O's Avoid nephrotoxic medications high anion gap metabolic acidosis: possibly due to acute kidney injury, we will rule out DKA as patient is on Jardiance Heme: Chronic anemia, closely monitor H&H, transfuse for hemoglobin less than 7 grams/deciliter Endocrine: hypoglycemia possibly due to poor oral intake secondary to dysphagia we will rule out sepsis as a cause of hypoglycemia Sliding scale insulin as needed Infectious disease: We will send pancultures we will start on empiric Zosyn Musculoskeletal: Decubitus ulcer prevention protocol Lines: peripheral Prophylaxis: heparin, pantoprazole total critical care time spent is about 45 minutes on managing this patient critically ill with multiple organ failures including acute encephalopathy, acute renal failure, severe metabolic encephalopathy, acute respiratory failure on ventilator support, shock needing vasopressor support. Critical care time spent is mainly on ventilator management, sedation management, close hemodynamic monitoring, correction of acid-base disorders, vasopressor management, chart reviewed vent admission of the patient to critical care unit at this time is excluding any procedural time
[2025-01-07 15:38] LABS: Glucose, Whole Blood 269 mg/dL (60-115)
[2025-01-07] MEDS: Phenylephrine HCL 20 MG in 0.9 % Sodium Chloride 250 ML 262.63 MG IVCONT ×3 (15:38→20:11)
[2025-01-07] MEDS: cefTRIAXone sodium 2 GM VIAL IVPUSH (15:45)
[2025-01-07] MEDS: 0.9 % Sodium Chloride 1,000 ML 999 ML IV (15:47)
[2025-01-07] MEDS: Ketamine HCl 500 MG in 0.9 % Sodium Chloride 250 ML 5.91 MG IVCONT (16:08)
[2025-01-07 16:10] LABS: ABG Base Excess -28.1 mmol/L; ABG HCO3 2 mmol/L (22-26); ABG pCO2 10 mmHg (32-45); ABG pH 6.92 (7.35-7.45); ABG pO2 695 mmHg (83-108)
[2025-01-07 16:21] LABS: Anion Gap 37 (12-20); Blood Urea Nitrogen 83 mg/dL (9-16); Calcium 7.3 mg/dL (8.4-10.2); Carbon Dioxide 5 mmol/L (22-29); Chloride 107 mmol/L (96-108); Creatinine Clr Calc Pharmacy 5.8; Estimated Glomerular Filt Rate 5; Glucose Random 356 mg/dL (60-115); Potassium 4.2 mmol/L (3.3-5.1); Sodium 145 mmol/L (135-145)
[2025-01-07 16:26] LABS: Influenza A PCR NEGATIVE (Negative); Influenza B PCR NEGATIVE (Negative); Resp Syncy Virus RNA Qual PCR NEGATIVE (Negative); SARS COV2 PCR INHOUSE NEGATIVE (Negative)
[2025-01-07 16:29] LABS: Beta-Hydroxybutyrate 8.05 mmol/L (0.02-0.27); Lactic Acid 12.9 mmol/L (0.5-2.0)
[2025-01-07] MEDS: Sodium Bicarbonate 8.4% 150 MEQ in Dextrose 5 % 850 ML 999 MEQ IV ×2 (16:47→18:40)
[2025-01-07 16:56] LABS: Appearance Urine Clear; Color Urine Yellow; Glucose Urine UA >=1000 mg/dL (Negative); Leukocyte Esterase Urine Trace (Negative); Nitrite Urine Negative (Negative); PH 5.5 (5.0-9.0); UMIC TRIGGER UACC YES; Urine Blood Negative (Negative); Urine Ketones Trace mg/dL (Negative); Urine Protein 100 (2+) mg/dL (Neg-Trace)
[2025-01-07 17:01] LABS: Bacteria Urine None Seen (None Seen); Hyaline Casts Urine 0-2 /LPF (0-2); RBC Urine 0-2 /HPF (0-2); Squamous Epithelial Cell Urine 0-2 /HPF (0-2); WBC Urine 0-5 /HPF (0-5)
[2025-01-07] MEDS: Piperacillin Sodium/Tazobactam 2.25 GM in 0.9 % Sodium Chloride 50 ML IV (17:37)
[2025-01-07] MEDS: Heparin Sodium,Porcine 5,000 UNIT/ML VIAL 5000 UNIT SUBCUT (17:37)
[2025-01-07 17:41] LABS: Reflex Lactate? Lactic Acid Added
--- NOTE | 2025-01-07 18:27 | PC.NURSE ---
Addendum entered by Lisa Espino 01/07/25 18:54: 1529 temp sensing [address] in place, warming blanket placed d/t core temp 93.4 Original Note: late entry bilateral AC IV accessed via EMS approx 1405 this RN to room - plan for intubation, provider/respiratory at bedside. 1411 100mg succinylcholine 1412 20mg etomidate 57/35, unable to obtain o2, hr 67 1413 successfully intubated 7.5 ET tube 23 cm at lip w/ + color change 1415 bp of 60/32 1417 provider attempting to insert og tube, unable to do so at this time after multiple attempts - able to obtain o2 reading 99% vented 1435 16 fr og tube placed, confirmed via xray bp 98/56 1438 POC 185 1501 propofol started per protocol 1502 provider at bedside for central line placement [address]
[2025-01-07] MEDS: Norepinephrine Bitartrate/NS 16 MG/250 ML PLAST..BAG 5.43 MG IVCONT (19:04)
[2025-01-07 19:25] LABS: Hematocrit 31.1 % (37.0-47.0); Hemoglobin 9.4 g/dl (12.0-16.0); Mean Corpuscular HGB Conc 30.2 g/dl (31.0-35.0); Mean Corpuscular Hemoglobin 31.3 pg (27.0-33.0); Mean Corpuscular Volume 103.7 fL (80.0-98.0); Mean Platelet Volume 12.4 fL (9.4-12.3); Platelet Count 136 X10*3/uL (160-400); Red Cell Distribution Width 17.2 % (11.0-16.0); White Blood Count 10.7 X10*3/uL (4.8-10.8)
[2025-01-07 19:29] LABS: VBG Base Excess -23.6 mmol/L; VBG HCO3 4 mmol/L (22-26); VBG pCO2 15 mmHg; VBG pH 7.06 (7.32-7.43); VBG pO2 88 mmHg
[2025-01-07] MEDS: Vasopressin 20 UNIT/100 ML INFUS..BTL 12 UNIT IVCONT (19:37)
[2025-01-07] MEDS: Midazolam HCl 2 MG/2 ML VIAL IVPUSH ×2 (19:38→19:50)
--- NOTE | 2025-01-07 19:38 | PC.NURSE ---
late note: this RN noted pt's blood pressure as 51/32 at 1538, pt minimally responsive to painful stimuli, provider called to bedside. 2L NS started on pressure bags, 2nd 18G PIV established in L AC w prior 20G PIV in R AC from EMS. O2 @ 69% on 3L NC. recheck POC at 1346 was 490. fld bolus given w no change in bp, provider aware. resp at bedside. provider talking to family to obtain code status. pt determined to be a full code w plan to intubate. phenylephrine started at 1416 per MAR and titrated per provider verbal bedside order.
[2025-01-07 19:47] LABS: Venous Blood Gas Refer to POC result
[2025-01-07 19:57] LABS: ~Lactic Acid-LAB USE ONLY 16.3 mmol/L (0.5-2.0)
[2025-01-07 19:59] LABS: Alanine Aminotransferase 9 U/L (0-31); Albumin Level 2.7 g/dL (3.5-5.0); Alkaline Phosphatase 89 U/L (39-117); Anion Gap 39 (12-20); Aspartate Amino Transferase 199 U/L (5-31); Bilirubin Total 0.4 mg/dL (0.0-1.0); Blood Urea Nitrogen 79 mg/dL (9-16); Calcium 6.6 mg/dL (8.4-10.2); Carbon Dioxide 6 mmol/L (22-29); Chloride 103 mmol/L (96-108); Estimated Glomerular Filt Rate 5; Glucose Random 550 mg/dL (60-115); Magnesium 2.2 mg/dL (1.6-2.6); Phosphorus 7.8 mg/dL (2.7-4.5); Potassium 4.1 mmol/L (3.3-5.1); Sodium 144 mmol/L (135-145); Total Protein 4.6 g/dL (6.5-8.0)
[2025-01-07 21:01] LABS: Glucose, Whole Blood 423 mg/dL (60-115)
[2025-01-07] MEDS: Calcium Chloride 1 GM/10 ML SYRINGE IVPUSH (21:06)
[2025-01-07] MEDS: Insulin Regular/NS 100 UNIT/100 ML PLAST..BAG IVCONT (21:09)
[2025-01-07] MEDS: Phenylephrine HCL 20 MG in 0.9 % Sodium Chloride 250 ML 218.86 MG IVCONT ×3 (21:17→23:54)
[2025-01-07 21:21] LABS: Reflex Lactate? 2 Y
--- NOTE | 2025-01-07 21:41 | HO.HCP ---
Health Care Proxy Invocation Health Care Proxy Health Care Proxy Invocation Form: Gregory Frias Jeffrey, Hemanth Jeffrey, Leia Murphy Declaration: I, Shira Gaona, on the date cited below, have determined that, _Kanwal Haynes_, lacks the capacity to make or communicate, informed health care decision. This determination is made in accordance with accepted standards of medical judgment and pursuant to [place], the [place] Health Care Proxy Law. The cause, nature, extent and probable duration of the patient's inapacity are described below: Cause: Encephalopathy, renal failure Nature: narural Extent: critical Probable Duration of Patient's Incapacity:unknown
--- NOTE | 2025-01-07 21:44 | W.MHC.ACPN ---
Advanced Care Planning Note Advanced Care Planning Note Time spent (in minutes): 30 Narrative: I personally held goals of care conversation with patients son Rodriguez Murphy, Hemanth Harrellzquez in person with patients daughter Leia Murphy on the phone, informed of patient clinical status. Family comprehend extend of medical conditions, will like to make patient DNR at this time. Problems Discussed (1) Acute respiratory failure: (2) Hypovolemic shock: (3) Acute kidney injury: (4) Metabolic acidosis: (5) Hyperkalemia:
--- NOTE | 2025-01-07 21:49 | PHA.MEDREC ---
Pharmacy Consult ? Medication Reconciliation Pharmacy has completed the medication reconciliation. Got list from family I utilize to confirm pt medications with. Pt son confirmed the pt takes both the Carbidopa 25mg-Levodopa 100mg tablet 1 QID and Carbidopa 50mg-Levodopa 200mg 1 TID. Pt son states the pt is not taking the Triamcinolone Cream anymore and stopped it recently but didn't know exactly when.
[2025-01-07 22:07] LABS: Glucose, Whole Blood 410 mg/dL (60-115)
[2025-01-07 22:18] LABS: ~Lactic Acid-LAB USE ONLY 18.5 mmol/L (0.5-2.0)
[2025-01-07] MEDS: fentaNYL citrate/NS 1,000 MCG/100 ML PLAST..BAG 2.5 MCG IVCONT (22:44)
[2025-01-07 23:19] LABS: Glucose, Whole Blood 355 mg/dL (60-115)
[2025-01-07 23:34] LABS: Venous Blood Gas Refer to POC result
[2025-01-07 23:34] LABS: VBG Base Excess -25.1 mmol/L; VBG HCO3 3 mmol/L (22-26); VBG pCO2 13 mmHg; VBG pH 7.02 (7.32-7.43); VBG pO2 84 mmHg
[2025-01-07 23:58] LABS: Anion Gap 40 (12-20); Blood Urea Nitrogen 78 mg/dL (9-16); Calcium 7.4 mg/dL (8.4-10.2); Carbon Dioxide 6 mmol/L (22-29); Chloride 103 mmol/L (96-108); Creatinine Clr Calc Pharmacy 6.2; Estimated Glomerular Filt Rate 5; Glucose Random 430 mg/dL (60-115); Phosphorus 6.2 mg/dL (2.7-4.5); Sodium 146 mmol/L (135-145)
[2025-01-07 23:59] LABS: Lactic Acid 20.8 mmol/L (0.5-2.0)
[2025-01-08] VITALS (68 sets, daily range): BP systolic 70–114; BP diastolic 31–59; PULSE 1–122; RESP 15–30; TEMP 33.1–36.5; O2SAT 96–100; BMI 20.2
[2025-01-08 00:08] LABS: Glucose, Whole Blood 346 mg/dL (60-115)
[2025-01-08] MEDS: Potassium Chloride/H20 40 MEQ/100 ML PIGGYBACK 50 MEQ IV ×2 (00:31→07:45)
[2025-01-08 00:57] LABS: ABG Refer to POC result
[2025-01-08] MEDS: Piperacillin Sodium/Tazobactam 2.25 GM in 0.9 % Sodium Chloride 50 ML IV ×2 (01:03→08:02)
[2025-01-08] MEDS: Phenylephrine HCL 20 MG in 0.9 % Sodium Chloride 250 ML 218.86 MG IVCONT (01:11)
[2025-01-08 01:20] LABS: Reflex Lactate? Lactic Acid Added
[2025-01-08] MEDS: Vasopressin 20 UNIT/100 ML INFUS..BTL 12 UNIT IVCONT ×2 (01:20→08:56)
[2025-01-08 01:26] LABS: Glucose, Whole Blood 245 mg/dL (60-115)
[2025-01-08 01:26] LABS: Glucose, Whole Blood 190 mg/dL (60-115)
[2025-01-08 01:59] LABS: Glucose, Whole Blood 245 mg/dL (60-115)
[2025-01-08 02:03] LABS: ~Lactic Acid-LAB USE ONLY 23.5 mmol/L (0.5-2.0)
[2025-01-08] MEDS: Phenylephrine HCL 100 MG in 0.9 % Sodium Chloride 250 ML 54.19 MG IVCONT ×3 (02:25→11:34)
[2025-01-08 02:59] LABS: Glucose, Whole Blood 223 mg/dL (60-115)
[2025-01-08] MEDS: Midazolam HCl 2 MG/2 ML VIAL 4 MG IVPUSH ×4 (03:11→12:45)
[2025-01-08 03:35] LABS: Reflex Lactate? 2 Y
[2025-01-08 03:55] LABS: Glucose, Whole Blood 196 mg/dL (60-115)
[2025-01-08 04:02] LABS: MANUAL DIFF FLAG NO
[2025-01-08 04:03] LABS: Venous Blood Gas Refer to POC result
[2025-01-08 04:05] LABS: Basophils Percent Auto 0.1 % (0-2); Hematocrit 35.4 % (37.0-47.0); Hemoglobin 10.8 g/dl (12.0-16.0); Imm Gran Abs Auto 0.07 X10*3/uL (0.00-0.03); Lymphocytes Absolute Auto 1.6 X10*3/uL (1.2-4.9); Lymphocytes Percent Auto 21.9 % (20-40); Mean Corpuscular HGB Conc 30.5 g/dl (31.0-35.0); Mean Corpuscular Hemoglobin 31.1 pg (27.0-33.0); Mean Platelet Volume 12.1 fL (9.4-12.3); Monocytes Absolute Auto 0.2 X10*3/uL (0.1-1.2); Monocytes Percent Auto 2.1 % (2-11); NRBC Pct Auto 0.3 /100WBC (0.0-0.2); Neutrophils Absolute Auto 5.4 x10*3/uL (2.0-8.3); Neutrophils Percent Auto 74.9 % (45-73); Platelet Count 130 X10*3/uL (160-400); Red Blood Count 3.47 X10*6/uL (4.20-5.50); Red Cell Distribution Width 17.1 % (11.0-16.0); White Blood Count 7.3 X10*3/uL (4.8-10.8)
[2025-01-08 04:09] LABS: VBG Base Excess -27.2 mmol/L; VBG HCO3 3 mmol/L (22-26); VBG pCO2 15 mmHg; VBG pH 6.92 (7.32-7.43); VBG pO2 109 mmHg
[2025-01-08 04:13] LABS: INTERNATIONAL NORM RATIO 1.1 (0.9-1.1); Prothrombin Time 12.6 SEC (10.9-12.4)
[2025-01-08 04:39] LABS: ~Lactic Acid-LAB USE ONLY 25.2 mmol/L (0.5-2.0)
[2025-01-08 05:13] LABS: Glucose, Whole Blood 160 mg/dL (60-115)
[2025-01-08 05:38] LABS: Alkaline Phosphatase 230 U/L (39-117)
[2025-01-08 05:40] LABS: Alanine Aminotransferase 15 U/L (0-31); Albumin Level 2.9 g/dL (3.5-5.0); Aspartate Amino Transferase 296 U/L (5-31); Bilirubin Total 0.5 mg/dL (0.0-1.0); Blood Urea Nitrogen 74 mg/dL (9-16); Calcium 7.6 mg/dL (8.4-10.2); Carbon Dioxide < 5 mmol/L (22-29); Chloride 105 mmol/L (96-108); Creatinine Clr Calc Pharmacy 6.4; Estimated Glomerular Filt Rate 5; Glucose Random 221 mg/dL (60-115); Magnesium 2.1 mg/dL (1.6-2.6); Phosphorus 4.7 mg/dL (2.7-4.5); Sodium 150 mmol/L (135-145)
[2025-01-08 06:12] LABS: Glucose, Whole Blood 147 mg/dL (60-115)
--- NOTE | 2025-01-08 06:22 | HO.SKINPHOTO ---
All present on admission Location: coccyx/ right buttock Category: ?DTI/ Bruise Location: Right hip Category: bruise Location: Right ribs Category:bruise
[2025-01-08] MEDS: Norepinephrine Bitartrate/NS 16 MG/250 ML PLAST..BAG 43.43 MG IVCONT (06:29)
--- NOTE | 2025-01-08 06:39 | PC.NURSE ---
Assumed?care at 1900. Upon initial assessment, patient intubated and sedated, ketamine gtt running per OCT for sedation. Patient has positive pain response, weak cough, and weak gag. Occasionally grimacing and moves all extremities non-purposefully. Does not follow commands, open eyes, or track. SR/ST on tele, phenylephrine gtt running for BP support, 2x concentrated levophed gtt and vaso gtt added per LYNN Gaona for persistent hypotension, MAP goal >60. Phenylephrine gtt later changed to 5x concentrated per provider. Bicarb gtt running?per OCT. Patient intubated with 7.5 ETT, 24?@ lip. Lung sounds rhonchorous, see vent assessment. No secretions orally or inline despite lavage from respiratory. Patient difficult to obtain SpO2 reading on due to poor perfusion-- LITERARY WRITER aware. Temp 94.0, anais hugger applied with good effect, see vitals flowsheet. Abdomen soft and flat, hypoactive bowel sounds x4, OGT clamped.? Insulin gtt running per OCT. Temp sensing guzman catheter in place, initially draining clear dark yellow urine, progressively cloudier with sediment throughout the shift. Skin pale cool and dry, with extensive bruising to the right side, see skin note. Patient somewhat tremulous, occasionally?wiggling toes. Patient's family at bedside, updated by LYNN Gaona.? Throughout the shift, patient with increasing pressor requirements, persistent?acidosis, and worsening lab results (see labs). LYNN Gaona aware of all critical labs and values, and updated patient's son via phone at approx [phone]. Family to bedside at 0630. Bed locked in lowest position, bed alarm on, soft restraints in place for safety. Bedside report given to oncoming RN.?
[2025-01-08 07:02] LABS: Glucose, Whole Blood 104 mg/dL (60-115)
[2025-01-08 08:09] LABS: Glucose, Whole Blood 91 mg/dL (60-115)
[2025-01-08] MEDS: EPINEPHrine 5 MG in Dextrose 5 % 250 ML 35.86 MG IVCONT (08:21)
--- NOTE | 2025-01-08 08:32 | P.PNCC_ITS ---
Subjective Subjective Date of Service: 01/08/25 Interval History: Remains critically ill on multiple vasopressor support including levophed, phenylephrine, vasopressin and epinephrine. severe lactic acidosis and metabolic acidosis On ventilator support Critical Care Time (minutes): 35 Physical Exam 2 Vital Signs: Vital Signs: Last Vital Signs Temp 97.5 F 01/08/25 08:00 Pulse 107 H 01/08/25 08:23 Resp 18 01/08/25 08:00 BP 88/31 L 01/08/25 08:23 Pulse Ox 100 01/08/25 08:00 O2 Del Method Mechanical Ventil ation 01/08/25 08:00 O2 Flow Rate 3 01/07/25 13:38 FiO2 30 01/08/25 08:00 BMI result Body Mass Index 20.2 General: Elderly lady in severe acute distress, chronically ill appearing and tired appearing Nutritional Appearance: well nourished and overweight Eyes: appearance normal, both eyes and all related structures; Alignment and Position: alignment normal and position normal Neck: No lymphadenopathy, no thyromegaly Resp: bilateral air entry equal, crackles heard bilaterally Cardio: Regular rate, regular rhythm; Heart sounds: S1 normal heart sound present and S2 normal heart sound present GI: soft, nontender, no guarding, no hepatosplenomegaly : bladder normal to inspection, bladder normal to palpation, no renal angle tenderness Skin: no rashes or lesions noted and elasticity normal Neuro: Due to neurological examination can not be done as patient is on sedation Objective Data Labs 01/08/25 03:49 01/08/25 03:49 Labs: Laboratory Results - last 24 hr 01/07/25 01/07/25 01/07/25 12:52 13:09 13:21 WBC RBC Hgb Hct MCV MCH MCHC RDW Plt Count MPV Immature Gran % (Auto) Neut % (Auto) Lymph % (Auto) [place] % (Auto) Eos % (Auto) Baso % (Auto) Lymph # (Auto) [place] # (Auto) Eos # (Auto) Baso # (Auto) Abs Immat Gran (auto) Absolute Neuts (auto) Absolute Nucleated RBC Nucleated RBC % (auto) PT INR O2 Saturation ABG pH at Pt Temp ABG pCO2 at Pt Temp ABG pO2 at Pt Temp ABG HCO3 ABG Base Excess (Actual) VBG pH VBG pCO2 VBG pO2 VBG HCO3 VBG O2 Saturation VBG Base Excess Sodium Potassium Chloride Carbon Dioxide Anion Gap BUN Creatinine Estim Creat Clear Calc Estimated GFR POC Glucose 33 L* 27 L* 315 H Random Glucose Lactic Acid Lactic Acid F/U @ 2Hr Lactic Acid F/U @ 4Hr Calcium Phosphorus Magnesium Total Bilirubin Direct Bilirubin AST ALT Alkaline Phosphatase Ammonia Total Creatine Kinase Troponin I High Sens Total Protein Albumin Beta-Hydroxybutyrate Urine Color Urine Appearance Urine pH Ur Specific [place] Urine Protein Urine Glucose (UA) Urine Ketones Urine Blood Urine Nitrite Ur Leukocyte Esterase Urine RBC Urine WBC Ur Squamous Epith Cells Urine Bacteria Hyaline Casts Influenza Type A (PCR) Influenza Type B (PCR) RSV RNA Qual (PCR) SARS-CoV-2 RNA (RT-PCR) 01/07/25 01/07/25 01/07/25 13:37 13:46 14:03 WBC 10.1 RBC 3.26 L D Hgb 10.0 L D Hct 33.4 L MCV 102.5 H MCH 30.7 MCHC 29.9 L RDW 17.1 H Plt Count 160 MPV 12.7 H Immature Gran % (Auto) 0.6 H Neut % (Auto) 82.6 H Lymph % (Auto) 9.3 L [place] % (Auto) 7.4 Eos % (Auto) 0.0 Baso % (Auto) 0.1 Lymph # (Auto) 0.9 L [place] # (Auto) 0.8 Eos # (Auto) 0.0 Baso # (Auto) 0.0 Abs Immat Gran (auto) 0.06 H Absolute Neuts (auto) 8.4 H Absolute Nucleated RBC 0.000 Nucleated RBC % (auto) 0.0 PT INR O2 Saturation ABG pH at Pt Temp ABG pCO2 at Pt Temp ABG pO2 at Pt Temp ABG HCO3 ABG Base Excess (Actual) VBG pH VBG pCO2 VBG pO2 VBG HCO3 VBG O2 Saturation VBG Base Excess Sodium 144 Potassium 4.6 D Chloride 102 Carbon Dioxide 6 L* D Anion Gap 41 H BUN 79 H Creatinine 8.58 H* Estim Creat Clear Calc 5.4 Estimated GFR 5 POC Glucose 490 H* 350 H* Random Glucose 440 H* Lactic Acid Lactic Acid F/U @ 2Hr Lactic Acid F/U @ 4Hr Calcium 7.7 L D Phosphorus Magnesium Total Bilirubin 0.4 Direct Bilirubin 0.2 AST 149 H ALT 8 Alkaline Phosphatase 95 Ammonia 71 H Total Creatine Kinase Troponin I High Sens 94.6 H* Total Protein 5.4 L Albumin 3.1 L Beta-Hydroxybutyrate Urine Color Urine Appearance Urine pH Ur Specific [place] Urine Protein Urine Glucose (UA) Urine Ketones Urine Blood Urine Nitrite Ur Leukocyte Esterase Urine RBC Urine WBC Ur Squamous Epith Cells Urine Bacteria Hyaline Casts Influenza Type A (PCR) Influenza Type B (PCR) RSV RNA Qual (PCR) SARS-CoV-2 RNA (RT-PCR) 01/07/25 01/07/25 01/07/25 14:39 15:26 15:36 WBC RBC Hgb Hct MCV MCH MCHC RDW Plt Count MPV Immature Gran % (Auto) Neut % (Auto) Lymph % (Auto) [place] % (Auto) Eos % (Auto) Baso % (Auto) Lymph # (Auto) [place] # (Auto) Eos # (Auto) Baso # (Auto) Abs Immat Gran (auto) Absolute Neuts (auto) Absolute Nucleated RBC Nucleated RBC % (auto) PT INR O2 Saturation ABG pH at Pt Temp ABG pCO2 at Pt Temp ABG pO2 at Pt Temp ABG HCO3 ABG Base Excess (Actual) VBG pH VBG pCO2 VBG pO2 VBG HCO3 VBG O2 Saturation VBG Base Excess Sodium 145 Potassium 4.2 Chloride 107 Carbon Dioxide 5 L* Anion Gap 37 H BUN 83 H Creatinine 8.00 H* Estim Creat Clear Calc 5.8 Estimated GFR 5 POC Glucose 185 H 269 H Random Glucose 356 H* Lactic Acid 12.9 H* Lactic Acid F/U @ 2Hr Lactic Acid F/U @ 4Hr Calcium 7.3 L Phosphorus Magnesium Total Bilirubin Direct Bilirubin AST ALT Alkaline Phosphatase Ammonia Total Creatine Kinase 8106 H Troponin I High Sens Total Protein Albumin Beta-Hydroxybutyrate 8.05 H Urine Color Urine Appearance Urine pH Ur Specific [place] Urine Protein Urine Glucose (UA) Urine Ketones Urine Blood Urine Nitrite Ur Leukocyte Esterase Urine RBC Urine WBC Ur Squamous Epith Cells Urine Bacteria Hyaline Casts Influenza Type A (PCR) NEGATIVE Influenza Type B (PCR) NEGATIVE RSV RNA Qual (PCR) NEGATIVE SARS-CoV-2 RNA (RT-PCR) NEGATIVE 01/07/25 01/07/25 01/07/25 16:07 16:45 19:14 WBC RBC Hgb Hct MCV MCH MCHC RDW Plt Count MPV Immature Gran % (Auto) Neut % (Auto) Lymph % (Auto) [place] % (Auto) Eos % (Auto) Baso % (Auto) Lymph # (Auto) [place] # (Auto) Eos # (Auto) Baso # (Auto) Abs Immat Gran (auto) Absolute Neuts (auto) Absolute Nucleated RBC Nucleated RBC % (auto) PT INR O2 Saturation 100.0 ABG pH at Pt Temp 6.92 L* ABG pCO2 at Pt Temp 10 L* ABG pO2 at Pt Temp 695 H ABG HCO3 2 L ABG Base Excess (Actual) -28.1 VBG pH VBG pCO2 VBG pO2 VBG HCO3 VBG O2 Saturation VBG Base Excess Sodium Potassium Chloride Carbon Dioxide Anion Gap BUN Creatinine Estim Creat Clear Calc Estimated GFR POC Glucose Random Glucose Lactic Acid Lactic Acid F/U @ 2Hr 16.3 H* Lactic Acid F/U @ 4Hr Calcium Phosphorus Magnesium Total Bilirubin Direct Bilirubin AST ALT Alkaline Phosphatase Ammonia Total Creatine Kinase Troponin I High Sens Total Protein Albumin Beta-Hydroxybutyrate Urine Color Yellow Urine Appearance Clear Urine pH 5.5 Ur Specific [place] 1.020 Urine Protein 100 (2+) H Urine Glucose (UA) >=1000 H Urine Ketones Trace Urine Blood Negative Urine Nitrite Negative Ur Leukocyte Esterase Trace H Urine RBC 0-2 Urine WBC 0-5 Ur Squamous Epith Cells 0-2 Urine Bacteria None Seen Hyaline Casts 0-2 Influenza Type A (PCR) Influenza Type B (PCR) RSV RNA Qual (PCR) SARS-CoV-2 RNA (RT-PCR) 01/07/25 01/07/25 01/07/25 19:15 19:23 20:58 WBC 10.7 RBC 3.00 L Hgb 9.4 L Hct 31.1 L MCV 103.7 H MCH 31.3 MCHC 30.2 L RDW 17.2 H Plt Count 136 L MPV 12.4 H Immature Gran % (Auto) Neut % (Auto) Lymph % (Auto) [place] % (Auto) Eos % (Auto) Baso % (Auto) Lymph # (Auto) [place] # (Auto) Eos # (Auto) Baso # (Auto) Abs Immat Gran (auto) Absolute Neuts (auto) Absolute Nucleated RBC 0.000 Nucleated RBC % (auto) 0.0 PT INR O2 Saturation ABG pH at Pt Temp ABG pCO2 at Pt Temp ABG pO2 at Pt Temp ABG HCO3 ABG Base Excess (Actual) VBG pH 7.06 L* VBG pCO2 15 VBG pO2 88 VBG HCO3 4 L VBG O2 Saturation 95.0 VBG Base Excess -23.6 Sodium 144 Potassium 4.1 Chloride 103 Carbon Dioxide 6 L* Anion Gap 39 H BUN 79 H Creatinine 7.63 H* Estim Creat Clear Calc 6.0 Estimated GFR 5 POC Glucose 423 H* Random Glucose 550 H* Lactic Acid Lactic Acid F/U @ 2Hr Lactic Acid F/U @ 4Hr Calcium 6.6 L D Phosphorus 7.8 H Magnesium 2.2 Total Bilirubin 0.4 Direct Bilirubin AST 199 H ALT 9 Alkaline Phosphatase 89 Ammonia Total Creatine Kinase Troponin I High Sens Total Protein 4.6 L Albumin 2.7 L Beta-Hydroxybutyrate Urine Color Urine Appearance Urine pH Ur Specific [place] Urine Protein Urine Glucose (UA) Urine Ketones Urine Blood Urine Nitrite Ur Leukocyte Esterase Urine RBC Urine WBC Ur Squamous Epith Cells Urine Bacteria Hyaline Casts Influenza Type A (PCR) Influenza Type B (PCR) RSV RNA Qual (PCR) SARS-CoV-2 RNA (RT-PCR) 01/07/25 01/07/25 01/07/25 21:38 22:03 23:12 WBC RBC Hgb Hct MCV MCH MCHC RDW Plt Count MPV Immature Gran % (Auto) Neut % (Auto) Lymph % (Auto) [place] % (Auto) Eos % (Auto) Baso % (Auto) Lymph # (Auto) [place] # (Auto) Eos # (Auto) Baso # (Auto) Abs Immat Gran (auto) Absolute Neuts (auto) Absolute Nucleated RBC Nucleated RBC % (auto) PT INR O2 Saturation ABG pH at Pt Temp ABG pCO2 at Pt Temp ABG pO2 at Pt Temp ABG HCO3 ABG Base Excess (Actual) VBG pH VBG pCO2 VBG pO2 VBG HCO3 VBG O2 Saturation VBG Base Excess Sodium 146 H Potassium 3.0 L D Chloride 103 Carbon Dioxide 6 L* Anion Gap 40 H BUN 78 H Creatinine 7.45 H* Estim Creat Clear Calc 6.2 Estimated GFR 5 POC Glucose 410 H* Random Glucose 430 H* Lactic Acid 20.8 H* Lactic Acid F/U @ 2Hr Lactic Acid F/U @ 4Hr 18.5 H* Calcium 7.4 L D Phosphorus 6.2 H Magnesium 2.0 Total Bilirubin Direct Bilirubin AST ALT Alkaline Phosphatase Ammonia Total Creatine Kinase Troponin I High Sens Total Protein Albumin Beta-Hydroxybutyrate Urine Color Urine Appearance Urine pH Ur Specific [place] Urine Protein Urine Glucose (UA) Urine Ketones Urine Blood Urine Nitrite Ur Leukocyte Esterase Urine RBC Urine WBC Ur Squamous Epith Cells Urine Bacteria Hyaline Casts Influenza Type A (PCR) Influenza Type B (PCR) RSV RNA Qual (PCR) SARS-CoV-2 RNA (RT-PCR) 01/07/25 01/07/25 01/08/25 23:14 23:27 00:03 WBC RBC Hgb Hct MCV MCH MCHC RDW Plt Count MPV Immature Gran % (Auto) Neut % (Auto) Lymph % (Auto) [place] % (Auto) Eos % (Auto) Baso % (Auto) Lymph # (Auto) [place] # (Auto) Eos # (Auto) Baso # (Auto) Abs Immat Gran (auto) Absolute Neuts (auto) Absolute Nucleated RBC Nucleated RBC % (auto) PT INR O2 Saturation ABG pH at Pt Temp ABG pCO2 at Pt Temp ABG pO2 at Pt Temp ABG HCO3 ABG Base Excess (Actual) VBG pH 7.02 L* VBG pCO2 13 VBG pO2 84 VBG HCO3 3 L VBG O2 Saturation 91.0 VBG Base Excess -25.1 Sodium Potassium Chloride Carbon Dioxide Anion Gap BUN Creatinine Estim Creat Clear Calc Estimated GFR POC Glucose 355 H* 346 H Random Glucose Lactic Acid Lactic Acid F/U @ 2Hr Lactic Acid F/U @ 4Hr Calcium Phosphorus Magnesium Total Bilirubin Direct Bilirubin AST ALT Alkaline Phosphatase Ammonia Total Creatine Kinase Troponin I High Sens Total Protein Albumin Beta-Hydroxybutyrate Urine Color Urine Appearance Urine pH Ur Specific [place] Urine Protein Urine Glucose (UA) Urine Ketones Urine Blood Urine Nitrite Ur Leukocyte Esterase Urine RBC Urine WBC Ur Squamous Epith Cells Urine Bacteria Hyaline Casts Influenza Type A (PCR) Influenza Type B (PCR) RSV RNA Qual (PCR) SARS-CoV-2 RNA (RT-PCR) 01/08/25 01/08/25 01/08/25 01:18 01:20 01:33 WBC RBC Hgb Hct MCV MCH MCHC RDW Plt Count MPV Immature Gran % (Auto) Neut % (Auto) Lymph % (Auto) [place] % (Auto) Eos % (Auto) Baso % (Auto) Lymph # (Auto) [place] # (Auto) Eos # (Auto) Baso # (Auto) Abs Immat Gran (auto) Absolute Neuts (auto) Absolute Nucleated RBC Nucleated RBC % (auto) PT INR O2 Saturation ABG pH at Pt Temp ABG pCO2 at Pt Temp ABG pO2 at Pt Temp ABG HCO3 ABG Base Excess (Actual) VBG pH VBG pCO2 VBG pO2 VBG HCO3 VBG O2 Saturation VBG Base Excess Sodium Potassium Chloride Carbon Dioxide Anion Gap BUN Creatinine Estim Creat Clear Calc Estimated GFR POC Glucose 190 H 245 H Random Glucose Lactic Acid Lactic Acid F/U @ 2Hr 23.5 H* Lactic Acid F/U @ 4Hr Calcium Phosphorus Magnesium Total Bilirubin Direct Bilirubin AST ALT Alkaline Phosphatase Ammonia Total Creatine Kinase Troponin I High Sens Total Protein Albumin Beta-Hydroxybutyrate Urine Color Urine Appearance Urine pH Ur Specific [place] Urine Protein Urine Glucose (UA) Urine Ketones Urine Blood Urine Nitrite Ur Leukocyte Esterase Urine RBC Urine WBC Ur Squamous Epith Cells Urine Bacteria Hyaline Casts Influenza Type A (PCR) Influenza Type B (PCR) RSV RNA Qual (PCR) SARS-CoV-2 RNA (RT-PCR) 01/08/25 01/08/25 01/08/25 01:55 02:55 03:49 WBC 7.3 RBC 3.47 L Hgb 10.8 L Hct 35.4 L MCV 102.0 H MCH 31.1 MCHC 30.5 L RDW 17.1 H Plt Count 130 L MPV 12.1 Immature Gran % (Auto) 1.0 H Neut % (Auto) 74.9 H Lymph % (Auto) 21.9 [place] % (Auto) 2.1 Eos % (Auto) 0.0 Baso % (Auto) 0.1 Lymph # (Auto) 1.6 [place] # (Auto) 0.2 Eos # (Auto) 0.0 Baso # (Auto) 0.0 Abs Immat Gran (auto) 0.07 H Absolute Neuts (auto) 5.4 Absolute Nucleated RBC 0.020 H Nucleated RBC % (auto) 0.3 H PT 12.6 H INR 1.1 O2 Saturation ABG pH at Pt Temp ABG pCO2 at Pt Temp ABG pO2 at Pt Temp ABG HCO3 ABG Base Excess (Actual) VBG pH VBG pCO2 VBG pO2 VBG HCO3 VBG O2 Saturation VBG Base Excess Sodium 150 H Potassium 3.0 L Chloride 105 Carbon Dioxide < 5 L* Anion Gap TNP BUN 74 H Creatinine 7.34 H* Estim Creat Clear Calc 6.4 Estimated GFR 5 POC Glucose 245 H 223 H Random Glucose 221 H Lactic Acid Lactic Acid F/U @ 2Hr Lactic Acid F/U @ 4Hr 25.2 H* Calcium 7.6 L Phosphorus 4.7 H Magnesium 2.1 Total Bilirubin 0.5 Direct Bilirubin AST 296 H ALT 15 Alkaline Phosphatase 230 H Ammonia Total Creatine Kinase 46929 H Troponin I High Sens Total Protein 5.0 L Albumin 2.9 L Beta-Hydroxybutyrate Urine Color Urine Appearance Urine pH Ur Specific [place] Urine Protein Urine Glucose (UA) Urine Ketones Urine Blood Urine Nitrite Ur Leukocyte Esterase Urine RBC Urine WBC Ur Squamous Epith Cells Urine Bacteria Hyaline Casts Influenza Type A (PCR) Influenza Type B (PCR) RSV RNA Qual (PCR) SARS-CoV-2 RNA (RT-PCR) 01/08/25 01/08/25 01/08/25 03:50 04:02 05:10 WBC RBC Hgb Hct MCV MCH MCHC RDW Plt Count MPV Immature Gran % (Auto) Neut % (Auto) Lymph % (Auto) [place] % (Auto) Eos % (Auto) Baso % (Auto) Lymph # (Auto) [place] # (Auto) Eos # (Auto) Baso # (Auto) Abs Immat Gran (auto) Absolute Neuts (auto) Absolute Nucleated RBC Nucleated RBC % (auto) PT INR O2 Saturation ABG pH at Pt Temp ABG pCO2 at Pt Temp ABG pO2 at Pt Temp ABG HCO3 ABG Base Excess (Actual) VBG pH 6.92 L* VBG pCO2 15 VBG pO2 109 VBG HCO3 3 L VBG O2 Saturation 95.0 VBG Base Excess -27.2 Sodium Potassium Chloride Carbon Dioxide Anion Gap BUN Creatinine Estim Creat Clear Calc Estimated GFR POC Glucose 196 H 160 H Random Glucose Lactic Acid Lactic Acid F/U @ 2Hr Lactic Acid F/U @ 4Hr Calcium Phosphorus Magnesium Total Bilirubin Direct Bilirubin AST ALT Alkaline Phosphatase Ammonia Total Creatine Kinase Troponin I High Sens Total Protein Albumin Beta-Hydroxybutyrate Urine Color Urine Appearance Urine pH Ur Specific [place] Urine Protein Urine Glucose (UA) Urine Ketones Urine Blood Urine Nitrite Ur Leukocyte Esterase Urine RBC Urine WBC Ur Squamous Epith Cells Urine Bacteria Hyaline Casts Influenza Type A (PCR) Influenza Type B (PCR) RSV RNA Qual (PCR) SARS-CoV-2 RNA (RT-PCR) 01/08/25 01/08/2525 06:08 06:59 08:06 WBC RBC Hgb Hct MCV MCH MCHC RDW Plt Count MPV Immature Gran % (Auto) Neut % (Auto) Lymph % (Auto) [place] % (Auto) Eos % (Auto) Baso % (Auto) Lymph # (Auto) [place] # (Auto) Eos # (Auto) Baso # (Auto) Abs Immat Gran (auto) Absolute Neuts (auto) Absolute Nucleated RBC Nucleated RBC % (auto) PT INR O2 Saturation ABG pH at Pt Temp ABG pCO2 at Pt Temp ABG pO2 at Pt Temp ABG HCO3 ABG Base Excess (Actual) VBG pH VBG pCO2 VBG pO2 VBG HCO3 VBG O2 Saturation VBG Base Excess Sodium Potassium Chloride Carbon Dioxide Anion Gap BUN Creatinine Estim Creat Clear Calc Estimated GFR POC Glucose 147 H 104 91 Random Glucose Lactic Acid Lactic Acid F/U @ 2Hr Lactic Acid F/U @ 4Hr Calcium Phosphorus Magnesium Total Bilirubin Direct Bilirubin AST ALT Alkaline Phosphatase Ammonia Total Creatine Kinase Troponin I High Sens Total Protein Albumin Beta-Hydroxybutyrate Urine Color Urine Appearance Urine pH Ur Specific [place] Urine Protein Urine Glucose (UA) Urine Ketones Urine Blood Urine Nitrite Ur Leukocyte Esterase Urine RBC Urine WBC Ur Squamous Epith Cells Urine Bacteria Hyaline Casts Influenza Type A (PCR) Influenza Type B (PCR) RSV RNA Qual (PCR) SARS-CoV-2 RNA (RT-PCR) Progress Note: A&P Assessment and plan (1) Cardiogenic shock: Status: Acute (2) Acute kidney injury: Status: Acute (3) Metabolic acidosis: Status: Acute (4) Parkinsons disease: Status: Acute (5) Acute respiratory failure: Status: Acute (6) Lactic acidosis: Status: Acute (7) Chronic malnutrition: Status: Acute Plan Neuro: Acute encephalopathy possibly due to metabolic encephalopathy from hypoglycemia, metabolic acidosis and acute kidney injury CT head did not show any acute intracranial pathology On ketamine for sedation due to hypotension and hypoglycemia, and fentanyl for analgesia Close neurological status monitoring in the ICU every hour Cardiac: Cardiogenic Shock: Possibly secondary to poor oral intake and positive pressure ventilation she is on maximum dose of levophed, vasopressin and phenylephrine and also started on epinephrine Respiratory: Acute hypoxemic respiratory failure due to due to poor respiratory drive Currently on ventilator support On PRVC mode FiO 30%, PEEP 5, TV320, RR30, overbreathing the vent to compensate metabolic acidosis Peak pressures and plateau pressures are under the curve Ventilator management bundle with head end elevation, aspiration precaution, chlorhexidine mouthwash, daily awakening trials, daily spontaneous breathing trials GI: We will hold starting tube feeds due to refractory shock transaminitis due to shock liver Renal: Acute kidney injury possibly secondary to hypovolemia and shock leading to ATN Ketone elevated, CPK elevated to 11,000- receiving IV fluids sodium bicarbonate at 0150 cc/hour Baseline creatinine normal, creatinine upon admission 8.58, now down trended to 7 We will closely monitor I's and O's Avoid nephrotoxic medications High anion gap metabolic acidosis: Secondary to severe lactic acidosis and starvation ketoacidosis Heme: Chronic anemia, closely monitor H&H, transfuse for hemoglobin less than 7 grams/deciliter Endocrine: Hypoglycemia possibly due to poor oral intake secondary to dysphagia Currently hyperglycemic after infusion of bicarb with dextrose Sliding scale insulin as needed Infectious disease: Pending pancultures on empiric Zosyn Musculoskeletal: Decubitus ulcer prevention protocol Lines: peripheral femoral line guzman catheter Prophylaxis: heparin, pantoprazole Total critical care time spent is about 60 minutes on managing this critically ill patient with multiple organ failure with poor prognosis. She has acute encephalopathy, cardiogenic shock on multiple vasopressor support, respiratory failure on ventilator support, acute kidney injury, severe metabolic acidosis, severe lactic acidosis, rhabdomyolysis. Critical care time spent is on ventilator management, sedation management, managing patient's multiple vasopressor support, close hemodynamic monitoring, close monitoring of electrolytes and correction of acidosis at this time is excluding procedural time Quality Stroke Does the patient have a stroke diagnosis?: No VTE Prior VTE?: No VTE Risk Level:: Medical - low VTE Device Contraindication: N/A - Device Ordered VTE Drug Contraindication: N/A - Med Ordered
[2025-01-08] MEDS: Sodium Bicarbonate 8.4% 50 MEQ/50 ML SYRINGE 150 MEQ IVPUSH (08:47)
[2025-01-08 09:05] LABS: Glucose, Whole Blood 73 mg/dL (60-115)
[2025-01-08] MEDS: Dextrose 50 % 25 GM/50 ML SYRINGE IVPUSH (09:05)
[2025-01-08 09:32] LABS: Glucose, Whole Blood 148 mg/dL (60-115)
[2025-01-08 09:32] LABS: Glucose, Whole Blood 155 mg/dL (60-115)
[2025-01-08] MEDS: Ketamine HCl 500 MG in 0.9 % Sodium Chloride 250 ML 14.77 MG IVCONT (09:56)
[2025-01-08 10:07] LABS: Glucose, Whole Blood 142 mg/dL (60-115)
[2025-01-08] MEDS: EPINEPHrine 5 MG in Dextrose 5 % 250 ML 358.63 MG IVCONT ×4 (10:20→12:32)
--- NOTE | 2025-01-08 10:24 | MHC.CM.PN ---
IMM DELIVERED COPY LEFT AT BEDSIDE FOR FAMILY. PT IS FROM HOME WITH FAMILY, ESSENTIALLY W/C BOUND. PT IS CURRENTLY IN ICU ON VENTILATORY/PRESSOR SUPPORT. CM WILL CONTINUE TO FOLLOW FOR A PLAN.
--- NOTE | 2025-01-08 10:47 | P.CDIM_ITS ---
PROVIDER RESPONSE TEXT: To clarify, the appropriate diagnosis supported by the clinical indicators: Hypernatremia: possible QUERY TEXT: PHYSICIAN'S DOCUMENTATION REQUEST Date of Query: 01/08/2025 09:34 AM EDT Patient Name: Kanwal Haynes Admit Date: 01/07/2025 Dear Estuardo Chun MD, A review of the medical record indicates additional documentation may be needed. Please review below and update the documentation accordingly. Clinical Indicators: LAB FINDINGS: sodium 146 H 150 H Based on the above, could you clarify if there is a diagnosis that correlates with these findings Hypernatremia possible, suspected, probable, cannot rule out etc. Labs indicate a diagnosis of (please specify) Other (explain) Clinically unable to determine (explain) Thank you, Nova Hargrove, CCS, CDIS Use of terms such as suspected, likely, concern for, or probable (associated with a specific diagnosi s that is being evaluated, monitored, or treated as if it exists) are acceptable and can be coded in the inpatient se tting, when documented at the time of discharge. Please use your independent medical judgment in providing your response. THIS QUERY IS PART OF THE PERMANENT MEDICAL RECORD
[2025-01-08] MEDS: fentaNYL citrate/NS 1,000 MCG/100 ML PLAST..BAG 5 MCG IVCONT (11:06)
--- NOTE | 2025-01-08 11:06 | MHC.CLN ---
PT IS MODERATELY MALNOURISHED PT WITH 21% SIGNIFICANT WT LOSS X 7 MONTHS WITH CHRONIC POOR PO INTAKE SECONDARY TO DYSPHAGIA R/T [facility]'S PT IS INTUBATED AND SEDATED DISCUSSED AT ROUNDS WITH MD-PROGNOSIS IS POOR PER MD CURRENTLY NPO CONSULT RD IF TF IS NEEDED FOLLOWING WITH TEAM SEE FULL CLINICAL NUTRITION ASSESSMENT
[2025-01-08] MEDS: Norepinephrine Bitartrate/NS 16 MG/250 ML PLAST..BAG 54.28 MG IVCONT (11:14)
--- NOTE | 2025-01-08 11:44 | P.CDIM_ITS ---
PROVIDER RESPONSE TEXT: To clarify, the appropriate diagnosis supported by the clinical indicators: Acute QUERY TEXT: PHYSICIAN'S DOCUMENTATION REQUEST Date of Query: 01/08/2025 11:07 AM EDT Patient Name: Kanwal Haynes Admit Date: 01/07/2025 Dear Estuardo Chun MD, A review of the medical record indicates additional documentation may be needed. Please review below and update the documentation accordingly. Clinical Indicators: ICU progress note 01/08/25 - Acute hypoxemic respiratory failure to due to poor respiratory drive. On PRVC mode FiO 30%, PEEP 5, TV320, RR30, over breathing the vent to compensate metabolic acidosis. She has acute encephalopathy, cardiogenic shock on multiple vasopressor support, severe metabolic aci dosis. Clarify which of the following accurately represents the acuity of the Metabolic acidosis into the Pl an of your progress note: Possible options might include: Acute Chronic Other specified Other (explain) Clinically unable to determine (explain) Thank you, Nova Hargrove, CCS, CDIS Use of terms such as suspected, likely, concern for, or probable (associated with a specific diagnosi s that is being evaluated, monitored, or treated as if it exists) are acceptable and can be coded in the inpatient se tting, when documented at the time of discharge. Please use your independent medical judgment in providing your response. THIS QUERY IS PART OF THE PERMANENT MEDICAL RECORD
--- NOTE | 2025-01-08 12:57 | PC.RT ---
Pt was control terminally extubated by RT at 1250 per MD order. Family and RN at bedside.
--- NOTE | 2025-01-08 14:13 | PC.NURSE ---
Addendum entered by Ondina Marrero RN 01/08/25 18:24: Unable to waste remaining fentanyl and ketamine drip volume in pyxis- pharmacy aware. Manual medication waste form completed and faxed to pharmacy. 795.83mcg fentanyl wasted, 422.364 mg ketamine wasted alongside Ninoska Simon RN as witness. Original Note: Assumed care at 0700- Pt. mechanically vented and sedated with ketamine and fentanyl. Vaso, Levo, and dirk drips running and titrated per OCT, epi drip added in attempt to maintain MAP >65. Family at bedside, updated by this RN and informed by MD of pt.s deteriorating clinical status. remaining family arrived to bedside at approx 1200- decision made by family to transition to [employer] and terminally extubate. 4mg IVP versed given and fentanyl gtt titrated per OCT. at 1250, pt. extubated and all vasopressors stopped. Pt. asystole at 1347- MD at bedside to notify family. Pt. belongings taken home by family. Post-mortem care complete, awaiting RN supervision to assist in tx to [facility].
--- NOTE | 2025-01-08 14:49 | PM.DDS ---
Discharge Sum: Prov Provider Primary care physician: Amanda Rodriguez MD Admitting clinician: Estuardo Chun Consults: 01/07/25 20:17 Consult to Wound Care Routine Reason for consultation: wound Pronouncing clinician: Estuardo Chun Discharge Sum: Diag Contributing Factors (1) Cardiogenic shock: (2) Acute kidney injury: (3) Metabolic acidosis: (4) Parkinsons disease: (5) Acute respiratory failure: (6) Lactic acidosis: (7) Chronic malnutrition: Discharge Sum: Summary Date and Time Date of admission: 01/07/25 16:33 Date of : 01/08/25 Time of : 13:47 Summary Details: 74-year-old lady with past medical history of hypertension, hyperlipidemia, diabetes mellitus on Jardiance and Tradjenta, Parkinson's disease which is slowly worsening for the past several months, dysphagia was brought into the ED unresponsive. Her blood sugar was found to be less than 30, she was intubated and placed on ventilator support. Post admission her condition continued to worsen going into severe cardiogenic shock needing multiple vasopressor support, which was rapidly escalated and this morning she was on 4 vasopressors maxed out still she was hypotensive. She was intubated and placed on ventilator support. She also had acute kidney injury with severe worsening lactic acidosis with pH around 7 despite multiple bicarb pushes and bicarbonate infusions. Given her severe lactic acidosis, refractory shock needing multiple vasopressor support her prognosis was futile and this was explained to the family who decided to transition her to comfort care, patient was terminally extubated and patient passed peacefully at 13:47PM Additional Data Confirmation of as documented by pronouncing clinician: no pulse Family: at bedside Attending/PCP notified?: No Attending physician: Estuardo Chun MD Was code activated?: No Autopsy requested?: No lease examiner notified?: No Organ bank notified?: No Advance directives: No Hospice patient?: No
== END 2025-01-08 13:47 | disposition expired | DRG 637 ==
LOC: HO.ED 16:37 → HO.EDOVER 17:09 → HO.ICU 17:14
PROVIDERS: Registered Nurse Community Health; Admitting Provider Internal Medicine Critical Care Medicine; Emergency Provider Emergency Medicine Emergency Medical Services; PCP Internal Medicine; Visit Provider Internal Medicine Critical Care Medicine
DX: E11.649 Type 2 diabetes mellitus with hypoglycemia without coma (principal); G93.41 Metabolic encephalopathy; J96.01 Acute respiratory failure with hypoxia; E87.0 Hyperosmolality and hypernatremia; E87.21 Acute metabolic acidosis; E46 Unspecified protein-calorie malnutrition; N17.0 Acute kidney failure with tubular necrosis; R57.0 Cardiogenic shock; Z66 Do not resuscitate; Z68.20 Body mass index [BMI] 20.0-20.9, adult; R57.1 Hypovolemic shock; E87.5 Hyperkalemia; R13.10 Dysphagia, unspecified; E11.65 Type 2 diabetes mellitus with hyperglycemia; G20.A1 Parkinson's disease without dyskinesia, without mention of fluctuations; Z20.822 Contact with and (suspected) exposure to COVID-19; Z87.891 Personal history of nicotine dependence; Z79.84 Long term (current) use of oral hypoglycemic drugs; Z79.899 Other long term (current) drug therapy
CPT/HCPCS: 0241U; 36415; 70450; 71045; 71250; 74176; 80048; 80053; 80076; 81001; 82010; 82140; 82550; 82803; 82947; 83605; 83735; 84100; 84484; 85025; 85027; 85610; 87040; 93005; 94002; 94003; 99285; J0171; J0330; J0696; J1610; J1644; J2250; J2371; J2543; J2598; J2704; J3010; J3480

== ENCOUNTER → 2025-01-07 13:01 | Outpatient (BNV) | payer MEDICARE, MEDICAID, SELFPAY | PROVIDERS: Emergency Provider Emergency Medicine Emergency Medical Services; Visit Provider Radiology Diagnostic Radiology | DX: K80.20 Calculus of gallbladder without cholecystitis without obstruction (principal); R41.82 Altered mental status, unspecified; R07.9 Chest pain, unspecified; Z46.82 Encounter for fitting and adjustment of non-vascular catheter | CPT/HCPCS: 71045 ==

== ENCOUNTER → 2025-01-07 13:01 | Outpatient (BNV) | payer MEDICARE, MEDICAID, SELFPAY | PROVIDERS: Admitting Provider Internal Medicine Critical Care Medicine; Emergency Provider Emergency Medicine Emergency Medical Services; PCP Internal Medicine; Visit Provider Internal Medicine Cardiovascular Disease | DX: R94.31 Abnormal electrocardiogram [ECG] [EKG] (principal); R41.82 Altered mental status, unspecified | CPT/HCPCS: 93010 ==

== ENCOUNTER → 2025-01-07 14:02 | Outpatient (BNV) | payer MEDICARE, MEDICAID, SELFPAY | PROVIDERS: Emergency Provider Emergency Medicine Emergency Medical Services; PCP Internal Medicine; Visit Provider Internal Medicine Critical Care Medicine | DX: R57.0 Cardiogenic shock (principal); G20.C Parkinsonism, unspecified; N17.9 Acute kidney failure, unspecified; E87.20 Acidosis, unspecified; J96.00 Acute respiratory failure, unspecified whether with hypoxia or hypercapnia; E46 Unspecified protein-calorie malnutrition; R57.1 Hypovolemic shock; E87.5 Hyperkalemia | CPT/HCPCS: 99239; 99291 ==